=== PATIENT | female | born 1950 | race African-American/Black ===

== ENCOUNTER 2025-02-04 06:19 | Inpatient (IN) ==
--- NOTE | 2025-01-19 13:02 | PAT Medication Instructions ---
Medication Instructions Date of Service January 19, 2025 Home Medications Medication Instructions Recorded diclofenac sodium 3 % topical gel 1 applic topical BID PRN pain #100 //25 grams amlodipine 10 mg tablet 10 mg PO QAM duloxetine 60 mg capsule,delayed release 60 mg PO HS armodafinil 250 mg tablet 250 mg PO QAM ascorbic acid (vitamin C) 1,000 mg tablet (Vitamin C) 1,000 mg PO DAILY aspirin 81 mg tablet,delayed release 81 mg PO QPM cholecalciferol (vitamin D3) 125 mcg (5,000 unit) tablet (Vitamin D3) 125 mcg PO QAM coenzyme Q10 100 mg capsule (CoQ-10) 100 mg PO DAILY cyanocobalamin (vitamin B-12) 2,500 mcg sublingual tablet (Vitamin B-12) 2,500 mcg sublingual DAILY losartan 50 mg tablet 100 mg PO QAM magnesium oxide 400 mg PO HS mirabegron 50 mg tablet,extended release 24 hr 50 mg PO QAM wrvkueef-xki-oucwz ac 400 mcg-calcium carb 500 mg-vit K1 20 mcg tablet (Women's 50 Plus Multivitamin) 1 tab PO QAM trospium 20 mg tablet 20 mg PO BID diclofenac sodium 3 % topical gel 1 applic topical BID PRN pain atorvastatin 40 mg tablet 40 mg PO QAM hydralazine 25 mg tablet 25 mg PO BID oxycodone-acetaminophen 5 mg-325 mg tablet 1 tab PO Q8H PRN Pain ASK your prescriber and surgeon aspirin 81 mg tablet,delayed release 81 mg PO QPM armodafinil/Nuvigil 250 mg tablet 250 mg PO QAM (Anesthesia requests Armodafinil/Nuvigil be stopped 5 days prior to surgery- please check if this is okay with your prescriber) STOP taking 2 weeks before surgery (or as soon as possible if surgery is within 2 weeks) coenzyme Q10 100 mg capsule (CoQ-10) 100 mg PO DAILY STOP taking 24 hours before surgery diclofenac sodium 3 % topical gel 1 applic topical BID PRN pain DO NOT take the morning of surgery ascorbic acid (vitamin C) 1,000 mg tablet (Vitamin C) 1,000 mg PO DAILY cholecalciferol (vitamin D3) 125 mcg (5,000 unit) tablet (Vitamin D3) 125 mcg PO QAM cyanocobalamin (vitamin B-12) 2,500 mcg sublingual tablet (Vitamin B-12) 2,500 mcg sublingual DAILY losartan 50 mg tablet 100 mg PO QAM mirabegron 50 mg tablet,extended release 24 hr 50 mg PO QAM Women's 50 Plus Multivitamin 1 tab PO QAM trospium 20 mg tablet 20 mg PO BID Take morning of surgery With a small sip of water, OTHERWISE NOTHING TO EAT OR DRINK AFTER MIDNIGHT: amlodipine 10 mg tablet 10 mg PO QAM atorvastatin 40 mg tablet 40 mg PO QAM hydralazine 25 mg tablet 25 mg PO BID oxycodone-acetaminophen 5 mg-325 mg tablet 1 tab PO Q8H PRN Pain (if needed) Take evening before surgery duloxetine 60 mg capsule,delayed release 60 mg PO HS magnesium oxide 400 mg PO HS trospium 20 mg tablet 20 mg PO BID hydralazine 25 mg tablet 25 mg PO BID oxycodone-acetaminophen 5 mg-325 mg tablet 1 tab PO Q8H PRN Pain (if needed) Other Notes If you have any questions please call us at [phone] or [phone] or [phone] or [phone]
--- NOTE | 2025-01-19 13:14 | Communication Note ---
Patient is scheduled for C2-C3 Laminectomy and Fusion, Spinal Cord Monitoring on 02/04/[address] Steinberg. Hx of narcolepsy listed. Patient taking armodafinil/Nuvigil 250 mg tablet QAM. Reviewed by Dr. Salinas. He indicates recommendation from anesthesia perspective to hold armodafinil/Nuvigil 5 days prior to surgery if okay from prescriber perspective. Preop medication instructions completed which will be given/reviewed with patient at upcoming PAT visit.
--- NOTE | 2025-01-27 09:59 | Anesthesiology Consultation ---
Date of Service January 27, 2025 Assessment & Plan (1) Encounter for pre-operative examination: - awaiting medical clearance, S PCP, optimization form to be sent to PCP with PAT testing. - check BSG am DOS. - Case discussed in detail with Dr. Villegas who advised patient have PCP isaiah hamilton prior to surgery given 11/16- [facility] hospitalization. Patient made aware, denied questions or concerns. Surgeon's office made aware. - difficult intubation: multiple cervical spine surgeries, limited cervical spine ROM. Chart Review Chart Review: Pending: Refer to Additional Notes / Consult section and Patient seen in Pre Admission Testing Teaching & Discussion Pre-Anesthesia Teaching/Discussion Notes: Instructed NPO after midnight before surgery, except medications with 15 cc of water. Medication instructions provided according to the PAT guidelines. History Surgery Operation Date: 02/04/25 08:50 Proposed Procedures p C2-C3 Laminectomy and Fusion, Spinal Cord Monitoring - Sharath Steinberg MD Height/Weight Height: 5 ft 2.75 in Weight: 107.7 kg Allergies Allergy/AdvReac Type Severity Reaction Status Date / Time Penicillins AdvReac Intermediate Nausea/vomiting Verified 01/27/25 11:14 (per Bob) Medications Home Medications Medication Instructions Recorded Confirmed Last Taken amlodipine 10 mg tablet 10 mg PO QAM 08/17/20 01/18/25 11/15/24 duloxetine 60 mg capsule,delayed 60 mg PO HS 08/17/20 01/18/25 11/14/24 release armodafinil 250 mg tablet 250 mg PO QAM 11/16/24 01/18/25 11/15/24 ascorbic acid (vitamin C) 1,000 mg 1,000 mg PO DAILY 11/16/24 01/18/25 11/15/24 tablet (Vitamin C) aspirin 81 mg tablet,delayed 81 mg PO QPM 11/16/24 01/18/25 11/15/24 release cholecalciferol (vitamin D3) 125 125 mcg PO QAM 11/16/24 01/18/25 11/15/24 mcg (5,000 unit) tablet (Vitamin D3) coenzyme Q10 100 mg capsule 100 mg PO DAILY 11/16/24 01/18/25 11/15/24 (CoQ-10) cyanocobalamin (vitamin B-12) 2,500 mcg sublingual DAILY 11/16/24 01/18/25 11/15/24 2,500 mcg sublingual tablet (Vitamin B-12) losartan 50 mg tablet 100 mg PO QAM 11/16/24 01/18/25 11/15/24 magnesium oxide 400 mg PO HS 11/16/24 01/18/25 11/15/24 mirabegron 50 mg tablet,extended 50 mg PO QAM 11/16/24 01/18/25 11/15/24 release 24 hr wyfklaep-twa-ettbt ac 400 1 tab PO QAM 11/16/24 01/18/25 11/15/24 mcg-calcium carb 500 mg-vit K1 20 mcg tablet (Women's 50 Plus Multivitamin) trospium 20 mg tablet 20 mg PO BID 11/16/24 01/18/25 11/15/24 08:00 diclofenac sodium 3 % topical gel 1 applic topical BID PRN pain #100 01/06/25 01/18/25 Unknown grams atorvastatin 40 mg tablet 40 mg PO QAM 01/18/25 01/18/25 Unknown hydralazine 25 mg tablet 25 mg PO BID 01/18/25 01/18/25 Unknown oxycodone-acetaminophen 5 mg-325 1 tab PO Q8H PRN Pain 01/18/25 01/18/25 Unknown mg tablet Additional Notes: Dr. La advised patient only hold armodafinil the morning of surgery. This was corrected on provided medication instructions. Past Medical History Medical History (Updated 01/27/25 @ 11:56 by Elke Ulloa PA-C) Arthritis Depression History of blood transfusion (~1969) childbirth History of stroke (~1980) 1980 Hx-TIA (transient ischemic attack) (~10/2024) Hyperlipidemia Hypertension controlled, stable per pt Narcolepsy Prediabetes Sleep apnea CPAP-compliant Spinal stenosis Urinary incontinence Patient denies h/o seizures, heart attack, heart failure, or blood clots/DVTs. Exercise / Class Metabolic Activity III < 4 Walking/Shop/Light housework (ambulates with walker, denies chest discomfort or shortness of breath with usual activities) Past Family History Family History Other No family history of adverse response to anesthesia Past Surgical History Surgical History History of bilateral tubal ligation History of cholecystectomy History of colonoscopy History of difficult intubation Per patient Noted with 2009 cervical fusion ([facility]) No available previous [place] anesthesia records per chart review History of hysterectomy History of tonsillectomy History of tooth extraction S/P cervical spinal fusion (2009) 2 levels Past Anesthesia History Difficult Airway and No Family Hx of Anesthesia Complications History of PONV No Hx of PONV and No Hx of Motion Sickness Social History Smoking Status: Former smoker Do You Dip or Chew Tobacco: No Smoking End Date: 1971 Hx Alcohol Use: Yes alcohol intake frequency: holidays/special occasions only Hx Substance Use: Yes substance use type: marijuana Last Used Substance Other:: last used>a couple weeks ago (advised) Review of Systems Patient denies chest pain, shortness of breath, dyspnea on exertion, fever, chills, cough, wheezing, or palpitations. Physical Exam Vital Signs Vitals BP 151/84 P 67 TEMP 97.7 SP02 97% on RA RESP 18 Physical Patient resting comfortably in chair in no acute distress, alert and oriented, responding appropriately throughout visit Severely limited cervical extension range of motion without pain TMD 3.5 finger breadths Mallampati Score 3 Dentition: upper partial, denies chipped or loose teeth, caps/crowns, implants or bridges Lungs: normal respiratory effort. Good air movement, clear throughout to auscultation, no adventitious breath sounds Cardiac: regular rate and rhythm, no murmurs noted Carotid arteries: negative bruit bilat Lab Results Anesthesia Preop Results Results Anesthesia Widget: WBC 7.72 K/ul (4.8-10.8) 01/27/25 Hgb 12.6 g/dl (12.0-16.0) 01/27/25 Hct 40.2 % (37.0-47.0) 01/27/25 Plt 283 K/uL (130-400) 01/27/25 Na 140 mmol/L (136-145) 01/27/25 K 3.9 mmol/L (3.5-5.1) 01/27/25 Cl 104 mmol/L (98-107) 01/27/25 CO2 31 mmol/L (21-32) 01/27/25 BUN 21 mg/dl (6-23) 01/27/25 Creat 0.99 mg/dl (0.6-1.2) 01/27/25 Glucose Level 140 mg/dl (70-99(Fasting)) H 01/27/25 PT 10.5 Seconds (9.0-12.0) 01/27/25 PTT 29 Seconds (21-31) 01/27/25 INR 1.0 (0.9-1.1) 01/27/25 HA1c 5.9 % (4.5-5.6) H 01/27/25 Blood Type O Positive 01/27/25 Antibody Screen NEGATIVE 01/27/25 Testing Electrocardiogram Date: 11/16/24 Normal sinus rhythm with sinus arrhythmia, rate 70 bpm Moderate voltage criteria for LVH, may be normal variant Chest X-Ray Date: 11/16/24 *1 view* 1. No acute pulmonary abnormalities are identified. 2. Cardiomegaly. Stable. Echocardiogram Date: 11/16/24 EF 55-6% Normal LV wall motion Mild cLVH Mild mitral annular calcification, significant mitral regurgitation is absent Grade I diastolic dysfunction Cervical Spine Date: 11/17/24 MRI 1. The study is very motion degraded. 2. Degenerative and postoperative changes of the cervical spine as above. 3. Right paracentral apparent osteophyte at C4-C5 is noted adjacent to an area of myelomalacia and narrowing/scarring of the cervical spinal cord. 4. Severe central canal stenosis at C2-C3. 5. No abnormal enhancement. CT 1. No evidence of acute fracture. 2. Post spinal fixation status from C3-C5 levels with intervertebral fusion. Satisfactory alignment of the metallic hardware is identified. No evidence of loosening or signs of infection. 3. Advanced cervical spondylodegenerative changes as described above. 4. Diffuse osteopenic texture. Other Testing Head and neck CTA 11/17/24 No significant arterial narrowing or occlusion seen at the neck. 1. Moderate to severe high-grade stenosis within the supraclinoid segments of the internal carotid arteries. 2. Moderate multifocal stenoses of the patent middle cerebral arteries. 3. No arterial occlusion identified. Head MRA 11/16/24 Unremarkable MRA of the head. Carotid doppler 11/16/24 No evidence of carotid artery stenosis. Brain MRI 11/16/24 1. No acute intracranial abnormality. No acute or subacute infarct. 2. Involutional changes with advanced chronic microvascular ischemic disease. 3. Punctate foci of blooming artifact artifact within the cerebral hemispheres bilaterally suggestive of chronic hemosiderin. Cerebral amyloidosis is a differential consideration. Head CT 11/16/24 1. No acute intracranial traumatic injury detected 2. Chronic microvascular ischemic changes and senile cortical atrophy. 3. MRI is recommended if acute ischemic insult is clinically warranted.
[2025-02-04] MEDS: LR 15ML/HR IV SCH (06:50)
[2025-02-04] MEDS: LR 60ML/HR IV SCH (06:50)
[2025-02-04] MEDS: ACETAMINOPHEN 500 MG TAB PO SCH (06:50)
[2025-02-04] MEDS ORDERED: PROPOFOL IV EMULSION 10 MG/ML 100 ML VIAL IV ONE ×4 (07:11→11:29)
[2025-02-04] MEDS ORDERED: LIDOCAINE 2% 2 ML VIAL/AMP(20MG/ML) INFIL ONE ×2 (07:11→15:34)
[2025-02-04] MEDS ORDERED: PROPOFOL IV EMULSION 10 MG/ML 20 ML VIAL IV ONE ×4 (07:14→15:34)
[2025-02-04] MEDS ORDERED: GLYCOPYRROLATE 0.2 MG/ML VIAL ONE (07:14)
[2025-02-04] MEDS ORDERED: DEXAMETHASONE SOD INJ 4 MG/ML VIAL ONE ×2 (07:14→15:34)
[2025-02-04] MEDS ORDERED: ONDANSETRON INJ 2 MG/ML 2 ML VIAL ONE ×3 (07:14→15:34)
[2025-02-04] MEDS ORDERED: SUCCINYLCHOLINE CHLORIDE 20 MG/ML 10 ML VIAL IV ONE (07:18)
--- NOTE | 2025-02-04 07:20 | History & Physical Bridge Note ---
Date of Service February 04, 2025 History & Physical Bridge Note I have examined the patient, reviewed the History & Physical and in the interval since the performance of the History & Physical I have noted the following changes of clinical significance: no changes noted Plan for C2-3 fusion and decompression
[2025-02-04] MEDS ORDERED: PHENYLEPHRINE HCL 10 MG/ML VIAL ONE ×3 (07:21→15:53)
[2025-02-04] MEDS ORDERED: ePHEDrine sulfate 50 MG/5 ML SYR ONE (07:29)
[2025-02-04] MEDS ORDERED: ATROPINE SULFATE 0.1 MG/ML 10ML SYR IV PRN ×2 (08:13→17:52)
[2025-02-04] MEDS ORDERED: PROMETHAZINE HCL 6.25 MG in SODIUM CHLORIDE 0.9% 50 ML IV PRN (08:13)
[2025-02-04] MEDS ORDERED: HYDROmorphone INJ 1 MG/ML SYRINGE IV PRN (08:13)
[2025-02-04] MEDS ORDERED: ONDANSETRON INJ 2 MG/ML 2 ML VIAL IV PRN ×3 (08:13→19:15)
[2025-02-04] MEDS ORDERED: NALOXONE HCL 0.4 MG/1 ML VIAL/CARP IV PRN ×2 (08:13→19:15)
[2025-02-04] MEDS ORDERED: FLUMAZENIL 0.1 MG/1 ML 10 ML VIAL IV PRN (08:13)
[2025-02-04] MEDS: BACITRACIN OINT 14 GM TUBE ONE (09:52)
[2025-02-04] MEDS: VANCOMYCIN HCL 1000MG/20ML VIAL ONE ×2 (09:53→17:11)
[2025-02-04] MEDS ORDERED: ceFAZolin 330 MG/ML 1 GM VIAL ONE ×3 (12:15→16:35)
--- NOTE | 2025-02-04 12:20 | Fluoroscopy Report ---
FL spine 1V any level CLINICAL HISTORY: C2-C3 LAMI/FUSION COMPARISON STUDY: None FLUOROSCOPY TIME: 17 seconds FLUOROSCOPY IMAGES: 2 EXPOSURE DOSE: 5 mGy FINDINGS: Fluoroscopy was provided for cervical spine surgery. IMPRESSION: Intraoperative fluoroscopy. ACT 112: Negative or not required by law. Electronically signed by: Santiago Tovar M.D. 02/04/2025 12:19 PM
[2025-02-04] MEDS: ceFAZolin 330 MG/ML 1 GM VIAL ONE (12:42)
[2025-02-04] MEDS: FLOSEAL HEMOSTATIC MATRIX 10ML TOP ONE (12:42)
--- NOTE | 2025-02-04 13:48 | Post Operative Brief Note ---
PG Immediate Post Op with CF Date of Surgery February 04, 2025 Pre & Post Diagnosis Operation Date: 02/04/25 07:30 Pre-Op Diagnosis: 1. Cervical Myelopathy 2. Cervical Stenosis of Spinal Canal 3. 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 Cervical Myelopathy 2. Cervical Stenosis of Spinal Canal 3. 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 Procedure I identified the patient and participated in the time-out.: Yes Procedure Operation Date: 02/04/25 07:30 Actual Procedures p C2-C3 Laminectomy and Fusion with Navigation and Spinal Cord Monitoring(Not Applicable) - Sharath Steinberg MD Surgeon Sharath Steinberg MD Security Controls Assessor Shabbir Wharton Estimated Blood Loss 150 Findings Consistent with Post-Op Diagnosis Specimens Specimen Description: No specimen per surgeon Drains Lonnie Drain (15f ) and Conteh Catheter (Inserted after induction by Mk Davis RN) Anesthesia Type General Complications none Disposition Disposition: Recovery Room
--- NOTE | 2025-02-04 15:16 | Fluoroscopy Report ---
FL cervical 2-3V CLINICAL HISTORY: FUSION/LAMINECTOMY COMPARISON STUDY: MRI of the cervical spine November 17, 2024. Number of fluoroscopic images: 2. FINDINGS: Exact localization is difficult given suboptimal penetration. Fluoroscopy was provided duri ng a multilevel cervical laminectomy and fusion. A surgical drain is in place. There are skin carol . Previous anterior discectomy and fusion hardware is noted. IMPRESSION: Fluoroscopy provided during multilevel cervical laminectomy and fusion. ACT 112: Negative or not required by law. Electronically signed by: Stepan Bose M.D. 02/04/2025 3:13 PM
--- NOTE | 2025-02-04 15:30 | Operative Report ---
Post Operative Report Pre & Post Diagnosis Pre-Op diagnosis: Cervical myelopathy Cervical stenosis Prior cervical fusion Pre-Op diagnosis: Cervical myelopathy Cervical stenosis Prior cervical fusion I identified the patient and participated in the time-out.: Yes Procedure Operation Date: 02/04/25 13:05 Posterior cervical fusion C2-3 Cervical laminectomy C2 Posterior cervical instrumentation C3-4 Allograft for spinal fusion Use of stereotactic navigation for spinal instrumentation Instrumentation: Medtronic Surgeon Sharath Steinberg MD Shovel Loader Operator Shabbir Wharton Estimated Blood Loss 150 Findings Consistent with Post-Op Diagnosis Specimens None Drains Lonnie Anesthesia Type General Complications none Disposition Disposition: Recovery Room Description of Procedure Patient was brought to the operating room after her neck was marked in the preoperative area. General anesthesia was induced, baseline SSEPs and motor evoked potentials were obtained by neuromonitoring. Cassidy head positioner was attached. Patient was then placed in a cervical collar. She was then flipp ed to the prone position gently and [place] head positioner attached to the frame. Neuromonitoring reattached the lead and there was no change in neuromonitoring signals with positioning. Verbal timeout was performed after the patient was prepped and draped in the usual sterile fashion and a skin incision was approximated by fluoroscopy. All were in agreement with the timeout and would like to proceed. She had received preoperative antibiotics. SCDs were used for DVT prophylaxis and a Conteh catheter was in place. Skin was incised with a 10 blade scalpel. Subperiosteal dissection was carried out to expose the posterior C2-C3 and C4 lamina. The facet joints were dissected out and there was prior fusion from C3 below. Towel clip was placed on the C2 spinous process and level was confirmed with x-ray. I then used the Via [employer]ics micro cornerstone elevator to enter the left C2-3 facet joint. 3 mm rasp was used and a 2 mm allograft facet joint spacer was placed with in the C2-3 facet joint on the left to both provide indirect decompression of the foramen as well as encourage posterior fusion within the facet joint. There was considerable osteophyte covering the right C2-3 facet joint and minimal bone was already identified for purchase of C2 pars screws so decision was made to just bur the facet joint and packet with allograft material DBM. Spinous process clamp was attached to the C3 to lamina. The [employer] O-arm was brought in and intraoperative CT scan was performed. The images were uploaded to the interim Stealth viewer for CT guided navigation of the instrumentation. Using a navigated bur I created aerospace mechanic hole in the C2 pars bilaterally. A navigated drill was then used to further cannulate the tract, given the location of the vertebral artery I was able to cannulate a tract of 18 mm on the left and 16 mm on the right. Navigated tap was then used. 3.5 mm posterior cervical screws were then placed within the pars at C2 bilaterally. I then used the na vigated bur to cannulate lateral mass screw tracks into the C3 and C4 lateral masses bilaterally. Again navigated drill and tap were used. 14 mm lateral mass screws were placed bilaterally at C3 and C4 for additional purchase. Wound was thoroughly irrigated. The just.metronic O-arm was then brought back in and a second intraoperative CT scan was performed. Images were uploaded to the in room viewer and I was able to identify good positioning of all cervical screws on the repeat CT scan. I then began with the decompression, again using a navigated bur with 4 mm match head tip I created a trough on each side of the C2 lamina to dissect down to the ligamentum flavum. The central portion of the C2 lamina was thinned with a high-speed bur I did leave the superior attachment of the C2 spinous process and C2 lamina to preserve the ligamentous attachment of C1 and C2. Remaining C2 lamina bone over the central canal was removed with Kerrison rongeur. The ligamentum flavum was severely hypertrophied at the C2-3 level and this was elevated off of the dura with a micro nerve hook and removed with Kerrison rongeur. There was no change in neuromonitoring and SSEPs or motor evoked potentials during the decompression. At this point I further decorticated the lateral masses posteriorly and packed more demineralized bone matrix as well as Medtronic master graft bone graft substitute. Rods were bent and placed within the tulip head of the screws from C2-C4. Final tightening was used to lock the screws in place. Wound was thoroughly irrigated, a Lonnie drain was placed exiting out through the skin subfascially. Wound was closed in layers with strata fix suture in the fascia, interrupted Vicryl's in the subcutaneous layer and carol in the skin. Sterile dressing was applied and drain attached to suction. She was transferred back to the hospital bed and the [place] head positioner was removed and she was taken to PACU in stable condition. Postoperatively I was called to the PACU, concern is the drain had no output in over 1 hour and when the patient awakened she did states she had some numbness in her arms and legs, decision made to bring her back to the operating room for exchange of the drain. This was discussed with her daughter. I attest to the content of the Intraoperative Record and any orders documented therein. Any exceptions are noted below.
--- NOTE | 2025-02-04 15:33 | Orthopedic Progress Note ---
Date of Service February 04, 2025 Assessment & Plan (1) S/P cervical spinal fusion: Plan Emergent return to OR for wound exploration and drain change Subjective Called to PACU, patient is somnolent moving all extremities. Drain is dry with no output since OR, reported some numbness to PACU staff in hands and legs. Concern that drain is not functioning and may be developing hematoma. Review of Systems All systems reviewed & are unremarkable except as noted in HPI & below. Physical Exam somnolent but responds to commands, moves all extremities no drain output Results & Data Results & Data Laboratory Results . Diagnostic Findings . PG Care Time/CCT Total # of Minutes Spent Total Time Spent with Patient: Total time spent is greater than 50% in coordination of care (as documented) at patient's floor/unit and/or counseling patient: Coding Level of Care Code 99187 Post Operative Follow-Up Diagnoses S/P cervical spinal fusion Z98.1
[2025-02-04] MEDS ORDERED: ROCURONIUM BROMIDE 10 MG/ML 5 ML VIAL IV ONE (15:34)
--- NOTE | 2025-02-04 15:48 | Communication Note ---
Date of Service: February 04, 2025 No change in H&P. Pt in c-collar post operatively. Alert and answering questions. plan to take back to OR for exchange of drainage catheter. Brad TORRES Anesthesiology
[2025-02-04] MEDS ORDERED: SODIUM CHLORIDE 0.9% PF INJ 10 ML VIAL ONE (15:53)
[2025-02-04] MEDS ORDERED: SUGAMMADEX SODIUM 200 MG/2 ML VIAL IV ONE (16:56)
--- NOTE | 2025-02-04 17:38 | Operative Report ---
PG Post Operative Report Pre & Post Diagnosis Operation Date: 02/04/25 13:05 Pre-Op Diagnosis: Epidural Hematoma Post-Op Diagnosis: Epidural Hematoma I identified the patient and participated in the time-out.: Yes Procedure Operation Date: 02/04/25 13:05 Actual Procedures p Evacuation Surgical Hematoma(Right) - Sharath Steinberg MD Surgeon Sharath Steinberg MD Newspaper Managing Editor Shabbir Wharton Estimated Blood Loss 30 Findings Consistent with Post-Op Diagnosis Liquid blood collection in surgical site Specimens None Drains 19 Swedish Lonnie drain, 15 Swedish Lonnie drain subfascial Anesthesia Type General Complications none Disposition Disposition: Recovery Room Indications Patient was status post C2 decompression and posterior fusion, in PACU she reported advancing numbness and tingling in upper and lower extremities. On examination her drain was not functioning properly. High suspicion for developing epidural hematoma, immediate return to the operating room. Description of Procedure The patient was brought to the operating room where general anesthesia was induced. She was placed in the prone position on the Keegan spine table. All bony prominences were padded. Previous drain that was not functioning was removed and once it was pulled blood began draining from the site. Bam were removed. She was prepped and draped in the usual sterile fashion. Verbal timeout performed. Scalpel was used to recreate the incision and cut the sutures placed earlier today. These were removed with hemostat. Once I opened the fascia there was a large amount of liquid blood as well as serous fluid buildup at the surgical site. This was evacuated. Wound was irrigated. I explored the wound there was no active bleeding. The dura was intact. At this point unsure of why the prior drain had stopped functioning. I then placed a 19 Swedish drain subfascially exiting out the right side of the incision. On the left side of the incision I placed a 15 Swedish subfascial Lonnie drain. The fascia was closed tightly. Drains were attached to accordion suction and found to have good flow through the tubing towards the canister. The drains were sutured in place. The subcutaneous layer was then closed with Vicryl suture. Bam placed in the skin. Sterile dressing applied. Patient was placed back on her cervical collar and transferred back to her hospital bed. She will be sent to the PCU postoperatively for monitoring however at this point she has 2 large drains subfascially which are both functioning. No other evidence of complication when the wound was explored. I attest to the content of the Intraoperative Record and any orders documented therein. Any exceptions are noted below.
--- NOTE | 2025-02-04 18:10 | Anesthesiology Progress Note ---
Date of Service February 04, 2025 Anesthesia Post Procedure Vital Signs Vital Signs: Temp Pulse Resp BP Pulse Ox O2 Del Method O2 Flow Rate 02/04/25 17:55 89 16 151/111 H 100 Oxymask 3 02/04/25 17:45 36.3 C L 89 18 182/109 H 100 Oxymask 6 02/04/25 16:00 91 H 16 169/102 H 95 Nasal Cannula 2 02/04/25 15:50 90 13 149/88 H 94 Nasal Cannula 2 02/04/25 15:40 91 H 17 168/101 H 96 Nasal Cannula 2 02/04/25 15:30 91 H 19 164/98 H 96 Nasal Cannula 2 02/04/25 15:20 90 18 164/96 H 97 Nasal Cannula 2 02/04/25 15:10 89 12 163/97 H 97 Nasal Cannula 2 02/04/25 15:00 89 12 155/96 H 97 Nasal Cannula 2 02/04/25 14:50 36.4 C L 91 H 18 149/89 H 97 Nasal Cannula 2 02/04/25 14:40 91 H 18 150/92 H 97 Nasal Cannula 2 02/04/25 14:30 90 16 141/89 H 97 Nasal Cannula 2 02/04/25 14:20 90 21 139/111 H 97 Nasal Cannula 2 02/04/25 14:10 91 H 12 141/87 H 98 Nasal Cannula 4 02/04/25 14:00 91 H 24 130/89 98 Nasal Cannula 4 02/04/25 13:49 36.5 C 88 15 137/92 98 Oxymask 4 02/04/25 06:41 36.8 C 75 20 155/84 H 97 Room Air Pain Intensity Posterior Neck: Pain Intensity: 5 Transfer of Care Handoff Completed per policy Notes Mental Status: alert / awake / arousable Patient Amnestic to Procedure: Yes Nausea / Vomiting: adequately controlled Pain: adequately controlled Airway Patency, RR, SpO2: stable & adequate BP & HR: stable & adequate Hydration State: stable & adequate Anesthetic Complications: no major complications apparent Notes: reintubation for drain replacement with some difficulty. swollen soft tissues with bleeding. first attempt unsuccessful with glidescope. able to ventilate between attempts without difficulty. intubated with fiberoptic scope with glidescope guidance.
[2025-02-04] MEDS: LABETALOL HCL IV 5 MG/ML 20ML IV PRN (18:40)
[2025-02-04] MEDS ORDERED: DO NOT ADMINISTER FLU VACCINE PRN (19:15)
[2025-02-04] MEDS ORDERED: RACEPINEPHRINE 2.25% NEBU SOLN 0.5 ML VIAL INH PRN (19:15)
[2025-02-04] MEDS ORDERED: PROMETHAZINE 12.5 MG/50.5 ML BAG IV PRN (19:15)
[2025-02-04] MEDS ORDERED: SOD PHOSPHATE/SOD BIPHOSPHATE ENEMA 132 ML BTL PR PRN (19:15)
[2025-02-04] MEDS ORDERED: MAGNESIUM HYDROXIDE SUSP 30 ML UDC PO PRN (19:15)
[2025-02-04] MEDS ORDERED: diphenhydrAMINE Capsule 25 MG CAP PO PRN (19:15)
[2025-02-04] MEDS ORDERED: dexAMETHasone 8 MG in SYRINGE 0 ML IV PRN (19:15)
[2025-02-04] MEDS ORDERED: DO NOT ADMINISTER PNEUMOCOCCAL VACCINE PRN (19:15)
[2025-02-04] MEDS ORDERED: ALUMINUM/MAGNESIUM SUSP 30 ML UDC PO PRN (19:15)
[2025-02-04] MEDS ORDERED: ONDANSETRON 4 MG OD TAB PO PRN (19:15)
[2025-02-04] MEDS ORDERED: LORazepam 0.5 MG TAB PO PRN (19:15)
[2025-02-04] MEDS: LACTATED RINGER'S 1,000 ML IV SCH (19:43)
[2025-02-04] MEDS: ACETAMINOPHEN 1,000 MG/100 ML VIAL IV PRN (19:43)
[2025-02-04] MEDS: MAGNESIUM OXIDE 400 MG TAB PO SCH (20:22)
[2025-02-04] MEDS: DOCUSATE SODIUM/SENNA 50/8.6MG TAB PO SCH (20:54)
[2025-02-04 21:11] LABS: Hematocrit (blood only) 43.2 % (37.0-47.0); Hemoglobin 13.7 g/dl (12.0-16.0); Immature Granulocytes # (auto) 0.12 K/uL (0.01-0.20); Immature Granulocytes % (auto) 0.8 %; Mean Corpuscular Hemoglobin 25.2 pg (25.0-34.0); Mean Corpuscular Volume 79.4 fL (80.0-100.0); Platelet Count 269 K/uL (130-400); RDW Standard Deviation 41.3 fL (36.4-46.3); Red Blood Count 5.44 M/uL (4.20-5.40); White Blood Count 14.14 K/ul (4.8-10.8)
[2025-02-04] MEDS: HYDROmorphone INJ 0.5 MG/0.5 ML SYR IV PRN (21:12)
[2025-02-04 21:28] LABS: Anion Gap 11.0 (3-11); Blood Urea Nitrogen 17.0 mg/dl (6-23); Calcium 9.0 mg/dl (8.6-10.3); Carbon Dioxide 25.0 mmol/L (21-32); Chloride 102.0 mmol/L (98-107); Creatinine Clr Calc Pharmacy 48.9 ml/min; Glucose 211.0 mg/dl (70-99(Fasting)); Magnesium 1.7 mg/dl (1.7-2.4); Potassium 4.2 mmol/L (3.5-5.1); Sodium 138.0 mmol/L (136-145)
[2025-02-04] MEDS ORDERED: DEXTROSE 50% 50 ML SYRINGE IV PRN (21:53)
[2025-02-04] MEDS ORDERED: GLUCOSE 40% GEL 15 GM TUBE PO PRN (21:53)
[2025-02-04] MEDS ORDERED: GLUCOSE 10 TAB/TUBE PO PRN (21:53)
[2025-02-04] MEDS ORDERED: CARBOHYDRATES FOR HYPOGLYCEMIA PO PRN (21:53)
[2025-02-04] MEDS ORDERED: GLUCAGON FOR INJ 1 MG VIAL SQ PRN (21:53)
[2025-02-04] MEDS: ACETAMINOPHEN 500 MG TAB PO PRN (22:30)
[2025-02-04] MEDS: INSULIN ASPART PER UNIT CHARGE SC SCH (22:34)
--- NOTE | 2025-02-04 22:41 | Hospitalist Consultation ---
Date of Consultation February 04, 2025 Assessment & Plan (1) Cervical myelopathy: Final Assessment and Recommendations as follows : Cervical myelopathy status post surgery complicated by epidural hematoma status post decompression Hypertensive urgency History recurrent TIAs hyperlipidemia, on statin Rx PVD, aortic ectasia as per records Maxwell's palsy MAGALY/narcolepsy (CPAP noncompliance) hx difficult intubation DM2 on oral medications, well-controlled as of recent hemoglobin A1c of 5.9 last month chronic back pain status post surgery past tobacco abuse Analgesia Titrate home BP meds Hold parameters for narcotics and neuropsychotropic medications for sedation/confusion Resume home aspirin for secondary stroke prevention once bleeding risk is deemed to be minimal and negligible following Orthopedics postop eval ISS BG goal 110-140, carb count coverage DVT prophylaxis. SCDs as per postop orders Thank you very much for this consultation. Dr. Valencia will follow patient's progress. Text document was generated using [employer] voice recognition software. It may contain grammatical or spelling errors. Kindly contact undersigned for clarification of any documentation item in question. History of Present Illness Reason for Consultation: Medical management Requesting Physician: Dr. Steinberg Attending Physician: Sharath Steinberg MD History of Present Illness PCP : Dr. Howard History obtained from patient and records. Limited history from patient secondary to lethargy. Medical history significant for hypertension, hyperlipidemia, PVD, recurrent TIAs, Maxwell's palsy, MAGALY/narcolepsy (CPAP noncompliance), difficult intubation, DM2 on oral medications, chronic back pain status post surgery, mood disorder, past tobacco abuse. Last confinement October 2024 for strokelike symptoms presenting as RLE weakness. Patient also evaluated by Orthopedics spine during confinement for cervical and lumbar spine stenosis. Patient subsequently discharged to rehab prior to transitioning home. Patient underwent elective laminectomy for cervical myelopathy/stenosis today. Postprocedure, patient reported numbness in the hands and legs. Drain not functioning as per surgeon note. Patient underwent emergent OR for suspected epidural hematoma. Subsequent evacuation of surgical hematoma done. Patient transferred to monitored unit postop. Patient currently comfortable except for tolerable neck discomfort. Denies chest pain, SOB. 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 Allergies Allergy/AdvReac Type Severity Reaction Status Date / Time Penicillins AdvReac Intermediate Nausea/vomiting Verified 02/04/25 06:36 (per Bob) Home Medications Medication Instructions Recorded Confirmed Type amlodipine 10 mg tablet 10 mg PO QAM 08/17/20 02/04/25 History duloxetine 60 mg capsule,delayed 60 mg PO HS 08/17/20 02/04/25 History release armodafinil 250 mg tablet 250 mg PO QAM 11/16/24 02/04/25 History ascorbic acid (vitamin C) 1,000 mg 1,000 mg PO DAILY 11/16/24 02/04/25 History tablet (Vitamin C) aspirin 81 mg tablet,delayed 81 mg PO QPM 11/16/24 02/04/25 History release cholecalciferol (vitamin D3) 125 125 mcg PO QAM 11/16/24 02/04/25 History mcg (5,000 unit) tablet (Vitamin D3) coenzyme Q10 100 mg capsule 100 mg PO DAILY 11/16/24 02/04/25 History (CoQ-10) cyanocobalamin (vitamin B-12) 2,500 mcg sublingual DAILY 11/16/24 02/04/25 History 2,500 mcg sublingual tablet (Vitamin B-12) losartan 50 mg tablet 100 mg PO QAM 11/16/24 02/04/25 History magnesium oxide 400 mg PO HS 11/16/24 02/04/25 History mirabegron 50 mg tablet,extended 50 mg PO QAM 11/16/24 02/04/25 History release 24 hr vsghhwob-lua-hshym ac 400 1 tab PO QAM 11/16/24 02/04/25 History mcg-calcium carb 500 mg-vit K1 20 mcg tablet (Women's 50 Plus Multivitamin) trospium 20 mg tablet 20 mg PO BID 11/16/24 02/04/25 History diclofenac sodium 3 % topical gel 1 applic topical BID PRN pain #100 01/06/25 02/04/25 Rx grams atorvastatin 40 mg tablet 40 mg PO QAM 01/18/25 02/04/25 History hydralazine 25 mg tablet 25 mg PO BID 01/18/25 02/04/25 History oxycodone-acetaminophen 5 mg-325 1 tab PO Q8H PRN Pain 01/18/25 02/04/25 History mg tablet Patient History Medical History History of blood transfusion (~1969) childbirth Spinal stenosis Urinary incontinence Arthritis Prediabetes Depression History of stroke (~1980) 1980 Hx-TIA (transient ischemic attack) (~10/2024) Hypertension controlled, stable per pt Hyperlipidemia Narcolepsy Sleep apnea CPAP-compliant Surgical History (Updated 02/04/25 @ 15:32 by Sharath Steinberg MD) History of difficult intubation Per patient Noted with 2009 cervical fusion ([facility]) No available previous [place] anesthesia records per chart review History of tonsillectomy History of bilateral tubal ligation History of hysterectomy History of colonoscopy History of cholecystectomy History of tooth extraction Family History Other No family history of adverse response to anesthesia Social History Smoking Status: Former smoker Tobacco Type: Cigarettes Smoking End Date: 1971; Second Hand Exposure: No; Do You Dip or Chew Tobacco: No; Tobacco Cessation Education Requested by Patient: No Hx Alcohol Use: Yes Alcohol type: wine Hx Substance Use: No Preferred Language: Armenian Communication Ability: Effective 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: No Beliefs That Will Affect Care: None marital status: Single Current Living Situation: Family Current Living Situation Comment: daughter current occupational status: retired Other Information That Helps Us Care for You: No Feels Safe at Home: Yes Safety Concerns: Feels Safe At This Time Assistive Devices: Cane and Denture - Upper Review of Systems Review of Systems: Could not be really obtained secondary to lethargy Physical Exam Physical Exam: GENERAL: Lethargic, morbidly obese, no respiratory distress SKIN: Normal color, warm HEENT: [place] palpebral conjunctivae, chronic facial asymmetry, no ptosis, moist buccal mucosa NECK : Cervical immobilizer in place CHEST : CTA, no tenderness HEART : RRR, no obvious murmurs ABDOMEN: Some distention, nontender EXTREMITIES : Minimal LE swelling, no LE tenderness palpable pulses, no other conspicuous deformities noted NEUROLOGIC : Lethargic,, chronic facial asymmetry; gait and stance not assessed Results & Data Results & Data Vital Signs (Past 12 Hours) Vital Signs Temp Pulse Pulse Resp BP BP Pulse Ox 02/04/25 21:45 36.7 C 88 16 164/91 H 94 02/04/25 21:03 02/04/25 20:45 36.7 C 89 18 156/93 H 98 02/04/25 19:57 85 18 97 02/04/25 19:45 36.7 C 88 16 164/98 H 96 02/04/25 19:15 36.6 C 87 16 164/99 H 98 02/04/25 19:15 02/04/25 18:45 36.4 C L 80 14 166/98 H 96 02/04/25 18:40 88 174/106 H 02/04/25 18:35 88 20 190/103 H 99 02/04/25 18:25 90 16 186/108 H 100 02/04/25 18:15 88 16 166/99 H 100 02/04/25 18:05 88 18 167/93 H 99 02/04/25 17:55 89 16 151/111 H 100 02/04/25 17:45 36.3 C L 89 18 182/109 H 100 02/04/25 16:00 91 H 16 169/102 H 95 02/04/25 15:50 90 13 149/88 H 94 02/04/25 15:40 91 H 17 168/101 H 96 02/04/25 15:30 91 H 19 164/98 H 96 02/04/25 15:20 90 18 164/96 H 97 02/04/25 15:10 89 12 163/97 H 97 02/04/25 15:00 89 12 155/96 H 97 02/04/25 14:50 36.4 C L 91 H 18 149/89 H 97 02/04/25 14:40 91 H 18 150/92 H 97 02/04/25 14:30 90 16 141/89 H 97 02/04/25 14:20 90 21 139/111 H 97 02/04/25 14:10 91 H 12 141/87 H 98 02/04/25 14:00 91 H 24 130/89 98 02/04/25 13:49 36.5 C 88 15 137/92 98 Pulse Ox O2 Del Method O2 Del Method O2 Flow Rate 02/04/25 21:45 Nasal Cannula 2 02/04/25 21:03 Nasal Cannula 2 02/04/25 20:45 Nasal Cannula 2 02/04/25 19:57 Nasal Cannula 2 02/04/25 19:45 Nasal Cannula 2 02/04/25 19:15 Nasal Cannula 2 02/04/25 19:15 98 Room Air 02/04/25 18:45 Nasal Cannula 2 02/04/25 18:40 02/04/25 18:35 Nasal Cannula 2 02/04/25 18:25 Nasal Cannula 2 02/04/25 18:15 Nasal Cannula 2 02/04/25 18:05 Nasal Cannula 2 02/04/25 17:55 Nasal Cannula 3 02/04/25 17:45 Nasal Cannula 5 02/04/25 16:00 Nasal Cannula 2 02/04/25 15:50 Nasal Cannula 2 02/04/25 15:40 Nasal Cannula 2 02/04/25 15:30 Nasal Cannula 2 02/04/25 15:20 Nasal Cannula 2 02/04/25 15:10 Nasal Cannula 2 02/04/25 15:00 Nasal Cannula 2 02/04/25 14:50 Nasal Cannula 2 02/04/25 14:40 Nasal Cannula 2 02/04/25 14:30 Nasal Cannula 2 02/04/25 14:20 Nasal Cannula 2 02/04/25 14:10 Nasal Cannula 4 02/04/25 14:00 Nasal Cannula 4 02/04/25 13:49 Oxymask 4 Laboratory Results Laboratory Results WBC 14.14 K/ul (4.8-10.8) H 02/04/25 20:55 RBC 5.44 M/uL (4.20-5.40) H 02/04/25 20:55 Hgb 13.7 g/dl (12.0-16.0) 02/04/25 20:55 Hct 43.2 % (37.0-47.0) 02/04/25 20:55 MCV 79.4 fL (80.0-100.0) L 02/04/25 20:55 MCH 25.2 pg (25.0-34.0) 02/04/25 20:55 MCHC 31.7 g/dL (32.0-36.0) L 02/04/25 20:55 RDW Std Deviation 41.3 fL (36.4-46.3) 02/04/25 20:55 RDW Coeff of Radha 14.5 % (11.5-14.5) 02/04/25 20:55 Plt Count 269 K/uL (130-400) 02/04/25 20:55 MPV 10.7 fL (9.4-12.4) 02/04/25 20:55 Immature Gran % (Auto) 0.8 % 02/04/25 20:55 Neut % (Auto) 86.2 % 02/04/25 20:55 Lymph % (Auto) 9.5 % 02/04/25 20:55 [place] % (Auto) 3.4 % 02/04/25 20:55 Eos % (Auto) 0.0 % 02/04/25 20:55 Baso % (Auto) 0.1 % 02/04/25 20:55 Neut # (Auto) 12.18 K/uL (1.40-6.50) H 02/04/25 20:55 Lymph # (Auto) 1.34 K/uL (1.20-3.40) 02/04/25 20:55 [place] # (Auto) 0.48 K/uL (0.11-0.59) 02/04/25 20:55 Eos # (Auto) 0.00 K/uL (0.00-0.50) 02/04/25 20:55 Baso # (Auto) 0.02 K/uL (0.00-0.20) 02/04/25 20:55 Immature Gran # (Auto) 0.12 K/uL (0.01-0.20) 02/04/25 20:55 Sodium 138 mmol/L (136-145) 02/04/25 20:55 Potassium 4.2 mmol/L (3.5-5.1) 02/04/25 20:55 Chloride 102 mmol/L (98-107) 02/04/25 20:55 Carbon Dioxide 25 mmol/L (21-32) 02/04/25 20:55 Anion Gap 11 (3-11) 02/04/25 20:55 BUN 17 mg/dl (6-23) 02/04/25 20:55 Creatinine 1.10 mg/dl (0.6-1.2) 02/04/25 20:55 Est Cr Clr Drug Dosing 48.9 ml/min 02/04/25 20:55 eGFR 51.75 02/04/25 20:55 BUN/Creatinine Ratio 15.5 (10-20) 02/04/25 20:55 Glucose 211 mg/dl (70-99(Fasting)) H 02/04/25 20:55 POC Glucose 136 mg/dl (70-99) H 02/04/25 06:36 Calcium 9.0 mg/dl (8.6-10.3) 02/04/25 20:55 Magnesium 1.7 mg/dl (1.7-2.4) 02/04/25 20:55 Impressions Spine X-Ray 02/04/25 07:30 FL spine 1V any level CLINICAL HISTORY: C2-C3 LAMI/FUSION COMPARISON STUDY: None FLUOROSCOPY TIME: 17 seconds FLUOROSCOPY IMAGES: 2 EXPOSURE DOSE: 5 mGy FINDINGS: Fluoroscopy was provided for cervical spine surgery. IMPRESSION: Intraoperative fluoroscopy. ACT 112: Negative or not required by law. Electronically signed by: Santiago Tovar M.D. 02/04/2025 12:19 PM Cervical Spine X-Ray 02/04/25 13:28 FL cervical 2-3V CLINICAL HISTORY: FUSION/LAMINECTOMY COMPARISON STUDY: MRI of the cervical spine November 17, 2024. Number of fluoroscopic images: 2. FINDINGS: Exact localization is difficult given suboptimal penetration. Fluoroscopy was provided during a multilevel cervical laminectomy and fusion. A surgical drain is in place. There are skin carol. Previous anterior discectomy and fusion hardware is noted. IMPRESSION: Fluoroscopy provided during multilevel cervical laminectomy and fusion. ACT 112: Negative or not required by law. Electronically signed by: Stepan Bose M.D. 02/04/2025 3:13 PM
[2025-02-05] MEDS: POLYETHYLENE (MIRALAX) 17 GM PACK PO SCH (05:55)
[2025-02-05 06:53] LABS: Hematocrit (blood only) 36.1 % (37.0-47.0); Hemoglobin 11.6 g/dl (12.0-16.0); Immature Granulocytes # (auto) 0.11 K/uL (0.01-0.20); Immature Granulocytes % (auto) 0.6 %; Mean Corpuscular Hemoglobin 25.4 pg (25.0-34.0); Mean Corpuscular Volume 79.2 fL (80.0-100.0); Platelet Count 266 K/uL (130-400); RDW Standard Deviation 40.9 fL (36.4-46.3); Red Blood Count 4.56 M/uL (4.20-5.40); White Blood Count 18.55 K/ul (4.8-10.8)
[2025-02-05 07:33] LABS: Anion Gap 9.0 (3-11); Blood Urea Nitrogen 17.0 mg/dl (6-23); Calcium 8.5 mg/dl (8.6-10.3); Carbon Dioxide 29.0 mmol/L (21-32); Chloride 102.0 mmol/L (98-107); Creatinine Clr Calc Pharmacy 48.5 ml/min; Glucose 126.0 mg/dl (70-99(Fasting)); Potassium 4.2 mmol/L (3.5-5.1); Sodium 140.0 mmol/L (136-145)
[2025-02-05] MEDS: ASCORBIC ACID 500 MG TAB PO SCH (08:17)
[2025-02-05] MEDS: VIBEGRON 75 MG TAB PO SCH (08:18)
[2025-02-05] MEDS: ATORVASTATIN 40 MG TAB PO SCH (08:18)
[2025-02-05] MEDS: LOSARTAN POTASSIUM 50 MG TAB PO SCH (08:18)
[2025-02-05] MEDS: CYANOCOBALAMIN (B-12) 2,500 MCG TABLET SL SCH (08:19)
[2025-02-05] MEDS: OXYBUTYNIN CHLORIDE XL 5 MG TABCR PO SCH (08:19)
[2025-02-05] MEDS: CEROVITE ADV FORMULA TAB PO SCH (08:19)
[2025-02-05] MEDS: CHOLECALCIFEROL 125 MCG (5,000 UNITS) TAB PO SCH (08:19)
--- NOTE | 2025-02-05 10:54 | Orthopedic Progress Note ---
Date of Service February 05, 2025 Assessment & Plan (1) S/P cervical spinal fusion: (2) Cervical myelopathy: (3) Lumbar radicular pain: Plan Will keep [place] until mobilizing order soft collar, recommend she wear this when OOB until ambulating safely (uses rolling walker at baseline) continue drains advance diet as tolerated upright xrays today appreciate hospitalist assistance with comorbidities will likely need rehab placement Subjective Still quite somnolent this morning but arouses to follow commands. No abnormal sensations this morning other than her chronic right leg radicular pain. Collar quite uncomfortable, labs ok today, drains functioning. Review of Systems All systems reviewed & are unremarkable except as noted in HPI & below. Physical Exam 5/5 strength upper extremities C5-T1 5/5 strength lower extremities L2-S1 except 4/5 right tib ant (chronic) drains functioning Results & Data Results & Data Laboratory Results . Diagnostic Findings . PG Care Time/CCT Total # of Minutes Spent Total Time Spent with Patient: Total time spent is greater than 50% in coordination of care (as documented) at patient's floor/unit and/or counseling patient: Coding Level of Care Code 68780 Post Operative Follow-Up Diagnoses S/P cervical spinal fusion Z98.1 Cervical myelopathy G95.9 Lumbar radicular pain M54.16
--- NOTE | 2025-02-05 12:16 | Hospitalist Progress Note ---
Date of Service February 05, 2025 Assessment & Plan (1) Cervical myelopathy: (2) Cervical stenosis of spinal canal: (3) S/P spinal surgery: Plan: Patient is a 75y/o F with PMHx significant for DM type II with proteinuria, left ovarian cyst, mixed HLD, MAGALY with CPAP noncompliance, HTN, thoracic aortic aneurysm, morbid obesity, urge incontinence, chronic bilateral low back pain with bilateral sciatica, narcolepsy, history of TIA, depression and past tobacco use who is being seen in consultation for routine postoperative medical management after undergoing elective C2-C3 laminectomy and fusion performed by Dr. Steinberg on 02/04/25. Postoperative course c/b spinal epidural hematoma formation requiring emergent evacuation in the OR later in the evening on 02/04/25 due to a malfunctioning surgical drain. Pt feeling dizzy this AM upon sitting up --> ? 2/2 to reaction from anesthesia SBP stable in the 120s, other VSS; dizziness improved upon lying down --> bedrest encouraged for now C-collar causing significant discomfort -TT sent to Dr. Steinberg regarding this --> soft collar ordered for better fit/comfort -Needs to wear C-collar when OOB until ambulating safely (uses rolling walker at baseline) -Can remove C-collar while lying in bed Appreciate PT/OT evals once dizziness resolves Hold parameters for narcotics and neuropsychotropic medications for sedation/confusion Pain control, bowel regimen as per ortho spine Can advance MORENITA per d/w Dr. Steinberg Continue surgical drains as per ortho spine (4) Acute postoperative pulmonary insufficiency: Plan: Multifactorial 2/2 anesthesia effects, narcotics, likely component of atelectasis as well given discomfort w/ C-collar Was transiently hypoxic down to 85% SpO2 requiring 2L NC this AM -Will trial off O2 today per pt's request (5) Leukocytosis: Plan: Likely 2/2 intraop corticosteroids Procal neg Low suspicion for superimposed infection Continue to monitor (6) Acute blood loss anemia: Plan: ISO expected surgical loss Likely dilutional component contributing as well No indication to transfuse at this time Continue to monitor (7) Diabetes type 2: Plan: SSI protocol while inpt BSG checks stable Hgb A1c 5.9% in 12/2024 Other chronic medical conditions: HLD - continue statin H/o TIA - resume aspirin ASA as deemed by ortho spine HTN - BP on softer side; hold Norvasc, hydralazine for now; continue losartan and monitor BP trend DVT Prophylaxis: As per ortho spine Disposition: D/c planning as per ortho spine We will follow the patient with you during their hospital stay. You can reach a member of the [place] [facility] Hospitalist Team 20/01 via [employer]. Patient seen in collaboration with Dr. Valencia. Please see addendum. I spent a total of 36 minutes coordinating, documenting, and providing care for this patient excluding time spent in the performance of separately billed services or time spent by another provider/QHP. This included personally reviewing all current laboratories and imaging studies, medical reconciliation, outpatient chart review and discussion with specialists. This chart was completed in part utilizing Speech Voice Recognition Software. Grammatical errors, random word insertions, pronoun errors, and incomplete sentences are an occasional consequence of this system due to software limitations, ambient noise, and hardware issues. Any formal questions or concerns about the content, text, or information contained within the body of this dictation should be directly addressed to the provider for clarification. Admission and Anticipated Discharge Date Admission Date: February 04, 2025 Subjective Patient seen and examined in room S235-1. Underwent C2-C3 laminectomy and fusion performed by Dr. Steinberg on 02/04/25 with postoperative course last evening complicated by spinal epidural hematoma formation secondary to a malfunctioning surgical drain which required emergent evacuation in the OR. Patient feeling quite dizzy this morning. Requesting multiple times to remove her cervical collar while sitting up at side of bed as it is extremely uncomfortable. Education provided on the importance of wearing the cervical collar when not lying down in bed as directed by Dr. Steinberg. Did discuss with Dr. Steinberg over TT. Plan on getting her a another cervical collar that fits her better. Surgical drains (x2) functioning. 20cc removed from each drain while I was in the room. Dizziness resolved upon lying down with assistance from nursing staff. SBP 120s this AM prior to my arrival. Requiring 2L NC for postoperative hypoxia. Patient denies any SOB, cough or chest pain. Review of Systems Review of Systems: At least ten systems reviewed and negative, except as noted in the subjective section. Physical Exam Physical Exam: General: Obese F, sitting up at side of bed, A&Ox3 but sleepy, NAD, appears uncomfortable 2/2 C-collar HEENT: C-collar in place, surgical dressing on posterior aspect of neck C/D/I, surgical drains (x2) draining serosanguineous outpt, oropharynx moist Respiratory: Normal respiratory effort, CTAB, no accessory muscle use Cardiovascular: RRR, no BLE edema, normal peripheral pulses Abdomen/GI: Active bowel sounds, soft, nontender to palpation in all quadrants Extremities/MSK: 5/5 strength in BUE and BLE, actively moves all extremities Neurologic: No overt focal deficits, CN's II-XI not formally tested but appear grossly intact bilaterally Results & Data Results & Data Vital Signs (Past 12 Hours) Vital Signs Temp Pulse Pulse Pulse Resp BP BP 02/05/25 11:41 36.8 C 89 20 121/71 02/05/25 09:39 02/05/25 07:30 02/05/25 07:13 36.7 C 78 16 125/82 02/05/25 05:45 36.7 C 81 16 02/05/25 05:12 85 02/05/25 03:31 36.8 C 85 16 121/71 02/05/25 02:21 84 16 02/05/25 01:45 36.6 C 91 H 16 131/69 Pulse Ox O2 Del Method O2 Flow Rate 02/05/25 11:41 98 Nasal Cannula 2 02/05/25 09:39 Nasal Cannula 2 02/05/25 07:30 Room Air 02/05/25 07:13 95 Room Air 02/05/25 05:45 94 Nasal Cannula 2 02/05/25 05:12 02/05/25 03:31 99 Nasal Cannula 2 02/05/25 02:21 99 Nasal Cannula 2 02/05/25 01:45 98 Nasal Cannula 2 Laboratory Results Short CBC 02/04/25 02/05/25 Range/Units 20:55 06:31 WBC 14.14 H 18.55 H (4.8-10.8) K/ul Hgb 13.7 11.6 L (12.0-16.0) g/dl Hct 43.2 36.1 L (37.0-47.0) % Plt Count 269 266 (130-400) K/uL BMP 02/04/25 02/05/25 20:55 06:31 Sodium 138 140 Potassium 4.2 4.2 Chloride 102 102 Carbon Dioxide 25 29 BUN 17 17 Creatinine 1.10 1.11 Glucose 211 H 126 H Calcium 9.0 8.5 L (5) Leukocytosis Leukocytosis type: unspecified Qualified Code(s): D72.829 - Elevated white blood cell count, unspecified (7) Diabetes type 2 Diabetes mellitus fpc insulin use: unspecified terminal makeup operator insulin use status Diabetes mellitus complication status: with other specified complication Qualified Code(s): E11.69 - Type 2 diabetes mellitus with other specified complication
--- NOTE | 2025-02-05 22:44 | Communication Note ---
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 Dr. Ko (orthopedist on-call) okay with transfer as per RN.
[2025-02-06 06:32] LABS: Hematocrit (blood only) 37.8 % (37.0-47.0); Hemoglobin 12.0 g/dl (12.0-16.0); Immature Granulocytes # (auto) 0.07 K/uL (0.01-0.20); Immature Granulocytes % (auto) 0.6 %; Mean Corpuscular Hemoglobin 25.6 pg (25.0-34.0); Mean Corpuscular Volume 80.8 fL (80.0-100.0); Platelet Count 249 K/uL (130-400); RDW Standard Deviation 42.5 fL (36.4-46.3); Red Blood Count 4.68 M/uL (4.20-5.40); White Blood Count 11.27 K/ul (4.8-10.8)
[2025-02-06 07:07] LABS: Anion Gap 4.0 (3-11); Blood Urea Nitrogen 16.0 mg/dl (6-23); Calcium 8.6 mg/dl (8.6-10.3); Carbon Dioxide 35.0 mmol/L (21-32); Chloride 102.0 mmol/L (98-107); Creatinine Clr Calc Pharmacy 63.3 ml/min; Glucose 129.0 mg/dl (70-99(Fasting)); Magnesium 1.9 mg/dl (1.7-2.4); Potassium 4.1 mmol/L (3.5-5.1); Sodium 141.0 mmol/L (136-145)
--- NOTE | 2025-02-06 07:38 | Hospitalist Progress Note ---
Date of Service February 06, 2025 Assessment & Plan (1) Cervical myelopathy: (2) Cervical stenosis of spinal canal: (3) S/P spinal surgery: Plan: Patient is a 75y/o F with PMHx significant for DM type II with proteinuria, left ovarian cyst, mixed HLD, MAGALY with CPAP noncompliance, HTN, thoracic aortic aneurysm, morbid obesity, urge incontinence, chronic bilateral low back pain with bilateral sciatica, narcolepsy, history of TIA, depression and past tobacco use who is being seen in consultation for routine postoperative medical management after undergoing elective C2-C3 laminectomy and fusion performed by Dr. Steinberg on 02/04/25. Postoperative course c/b spinal epidural hematoma formation requiring emergent evacuation in the OR later in the evening on 02/04/25 due to a malfunctioning surgical drain. Was previously feeling dizzy yesterday --> improving VSS, surgical dressing C/D/I and WILLIAN drains (x2) appear to be functioning w/o issue Appreciate PT/OT evals -Needs to wear C-collar when OOB until ambulating safely (uses rolling walker at baseline) -Can remove C-collar while lying in bed Soft C-collar exchanged yesterday from rigid C-collar 2/2 discomfort Hold parameters for narcotics and neuropsychotropic medications for sedation/confusion Pain control, bowel regimen as per ortho spine Tolerating diet w/o issue Maintain surgical drains as per ortho spine (4) Acute postoperative pulmonary insufficiency: Plan: Multifactorial 2/2 anesthesia effects, narcotics, likely component of atelectasis as well Was transiently hypoxic down to 85% SpO2 requiring 2L NC yesterday -Weaned down to 1L NC this AM -Trial off O2 today (5) Leukocytosis: Plan: Likely 2/2 intraop corticosteroids Procal neg Low suspicion for superimposed infection WBC improving Continue to monitor (6) Acute blood loss anemia: Plan: ISO expected surgical loss Likely dilutional component contributing as well H/H stabilized Continue to monitor (7) Diabetes type 2: Plan: SSI protocol while inpt BSG checks stable Hgb A1c 5.9% in 12/2024 Other chronic medical conditions: HLD - continue statin H/o TIA - resume aspirin ASA as deemed by ortho spine HTN - Resume hydralazine, continue losartan; will continue to hold Norvasc for now, can resume as BP gradually improves DVT Prophylaxis: As per ortho spine Disposition: D/c planning as per ortho spine; suspect will need rehab placement We will follow the patient with you during their hospital stay. You can reach a [facility]01 via [employer]. Patient seen in collaboration with Dr. Valencia. Please see addendum. I spent a total of 34 minutes coordinating, documenting, and providing care for this patient excluding time spent in the performance of separately billed services or time spent by another provider/QHP. This included personally reviewing all current laboratories and imaging studies, medical reconciliation, outpatient chart review and discussion with specialists. This chart was completed in part utilizing Speech Voice Recognition Software. Grammatical errors, random word insertions, pronoun errors, and incomplete sentences are an occasional consequence of this system due to software limitations, ambient noise, and hardware issues. Any formal questions or concerns about the content, text, or information contained within the body of this dictation should be directly addressed to the provider for clarification. Admission and Anticipated Discharge Date Admission Date: February 04, 2025 Subjective Patient seen and examined in W362-1. Downgraded to med/surg overnight. Sleepy but easily arousable. Endorses neck pain and discomfort. Denies any difficulty breathing/SOB or chest pain. Has not been up and walking yet. Did get a chance to stand up at side of bed with nursing staff last evening. Dizziness improved. Review of Systems Review of Systems: At least ten systems reviewed and negative, except as noted in the subjective section. Physical Exam Physical Exam: General: Obese F, laying down in bed, very sleepy but easily arousable and A&Ox with conversation, NAD HEENT: C-collar off while laying in bed, surgical dressing on posterior aspect of neck C/D/I, surgical drains (x2) draining serosanguineous outpt, oropharynx moist Respiratory: Normal respiratory effort, CTAB, no accessory muscle use Cardiovascular: RRR, no BLE edema, normal peripheral pulses Abdomen/GI: Active bowel sounds, soft, nontender to palpation in all quadrants Extremities/MSK: Actively moves all extremities Neurologic: No overt focal deficits, CN's II-XI not formally tested but appear grossly intact bilaterally Results & Data Results & Data Vital Signs (Past 12 Hours) Vital Signs Temp Pulse Pulse Resp BP BP Pulse Ox 02/06/25 07:15 70 16 93 02/06/25 04:56 36.4 C L 60 18 162/77 H 98 02/06/25 02:20 63 16 97 02/06/25 00:37 02/06/25 00:25 36.5 C 61 18 157/94 H 99 02/05/25 23:27 36.8 C 63 18 149/87 H 99 02/05/25 22:19 71 16 99 02/05/25 21:52 67 02/05/25 21:21 36.9 C 75 18 142/71 H 97 02/05/25 20:00 72 16 96 02/05/25 20:00 02/05/25 19:48 36.8 C 66 18 145/76 H 98 O2 Del Method O2 Flow Rate 02/06/25 07:15 Nasal Cannula 2 02/06/25 04:56 Nasal Cannula 2 02/06/25 02:20 Nasal Cannula 2 02/06/25 00:37 Nasal Cannula 2 02/06/25 00:25 Nasal Cannula 2 02/05/25 23:27 Nasal Cannula 2 02/05/25 22:19 Nasal Cannula 2 02/05/25 21:52 02/05/25 21:21 Nasal Cannula 2 02/05/25 20:00 Nasal Cannula 2 02/05/25 20:00 Nasal Cannula 2 02/05/25 19:48 Nasal Cannula 2 Laboratory Results Short CBC 02/06/25 Range/Units 05:55 WBC 11.27 H (4.8-10.8) K/ul Hgb 12.0 (12.0-16.0) g/dl Hct 37.8 (37.0-47.0) % Plt Count 249 (130-400) K/uL BMP 02/06/25 05:55 Sodium 141 Potassium 4.1 Chloride 102 Carbon Dioxide 35 H BUN 16 Creatinine 0.85 Glucose 129 H Calcium 8.6 (5) Leukocytosis Leukocytosis type: unspecified Qualified Code(s): D72.829 - Elevated white blood cell count, unspecified (7) Diabetes type 2 Diabetes mellitus complication status: with other specified complication 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
--- NOTE | 2025-02-06 10:50 | Orthopedic Progress Note ---
Date of Service February 06, 2025 Subjective Patient seen and examined, she notes some incisional pain, but still feels the upper extremities are improved since the surgery. No specific symptoms of numbness and tingling in the upper extremities. 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 Drains output 30 to 40 cc last shift. Impression: Postoperative day 2 from C2-3 posterior decompression instrumentation and arthrodesis, stable postoperative course. Plan: Will try to reduce the pain medicine intake, mobilize to chair possibly to bathroom depending on recommendations from physical therapy, maintain drains for now. Review of Systems All systems reviewed & are unremarkable except as noted in HPI & below. Physical Exam . Results & Data Results & Data Laboratory Results . Diagnostic Findings . PG Care Time/CCT Total # of Minutes Spent Total Time Spent with Patient: Total time spent is greater than 50% in coordination of care (as documented) at patient's floor/unit and/or counseling patient: Coding Level of Care Code 01541 Post Operative Follow-Up
--- NOTE | 2025-02-06 17:32 | XRay Report ---
EXAM: XR cervical spine 2 or 3V CLINICAL HISTORY: Post-op spine surgery TECHNIQUE: X-ray images of the cervical spine were obtained in anteroposterior (AP), lateral projections and odontoid view. COMPARISON: 11/16/2024 FINDINGS: Alignment: No evidence of acute fracture. Post spinal fixation status from C3-C5 levels with intervertebral fusion. Good alignment of the metallic hardware is identified. No evidence of loosening or signs of infection. Loss of cervical lordosis with straightening of curvature. Diffuse osteopenic changes noted. Multilevel anterior and posterior osteophytes with uncovertebral hypertrophy were noted. Atlantodental mild osteoarthritic changes. Severe degenerative changes of the facetal joints. Diffuse osteopenic texture. Vertebral Bodies and Intervertebral Disc Spaces: C3-C4 and C4-C5 intervertebral fusion Soft Tissues: Prevertebral soft tissues are of normal thickness. No evidence of prevertebral soft tissue swelling or mass effect. C6/7 is not seen by the patient's shoulder shadow. Additional Findings: No other significant abnormalities noted. IMPRESSION: 1. No evidence of acute fracture. 2. Post spinal fixation status from C3-C5 levels with intervertebral fusion. Satisfactory alignment of the metallic hardware is identified. No evidence of loosening or signs of infection. 3. Advanced cervical spondylodegenerative changes as described above. 4. Diffuse osteopenic texture. 5. No interval changes. Disclaimer: A subtle bone abnormality or fracture may not be readily apparent on X-rays, thus clinical correlation and further imaging including follow-up CT, MRI, or follow-up X-rays are advised as needed. Electronically signed by Ruben Irwin 02-06-2025 5:32 PM
[2025-02-07 08:33] LABS: Hematocrit (blood only) 39.0 % (37.0-47.0); Hemoglobin 11.9 g/dl (12.0-16.0); Immature Granulocytes # (auto) 0.05 K/uL (0.01-0.20); Immature Granulocytes % (auto) 0.5 %; Mean Corpuscular Hemoglobin 24.9 pg (25.0-34.0); Mean Corpuscular Volume 81.8 fL (80.0-100.0); Platelet Count 259 K/uL (130-400); RDW Standard Deviation 42.9 fL (36.4-46.3); Red Blood Count 4.77 M/uL (4.20-5.40); White Blood Count 9.93 K/ul (4.8-10.8)
[2025-02-07 08:51] LABS: Anion Gap 4.0 (3-11); Blood Urea Nitrogen 15.0 mg/dl (6-23); Calcium 8.8 mg/dl (8.6-10.3); Carbon Dioxide 35.0 mmol/L (21-32); Chloride 100.0 mmol/L (98-107); Creatinine Clr Calc Pharmacy 64.9 ml/min; Glucose 135.0 mg/dl (70-99(Fasting)); Magnesium 1.9 mg/dl (1.7-2.4); Potassium 3.8 mmol/L (3.5-5.1); Sodium 139.0 mmol/L (136-145)
--- NOTE | 2025-02-07 11:19 | Hospitalist Progress Note ---
Date of Service February 07, 2025 Assessment & Plan (1) Cervical myelopathy: (2) Cervical stenosis of spinal canal: (3) S/P spinal surgery: (4) Postoperative hypoxia: (5) Acute blood loss anemia: (6) Leukocytosis: (7) Diabetes type 2: Plan 75 year old female with PMH significant for DM type II with proteinuria, left ovarian cyst, mixed HLD, MAGALY with CPAP noncompliance, HTN, thoracic aortic aneurysm, morbid obesity, urge incontinence, chronic bilateral low back pain with bilateral sciatica, narcolepsy, history of TIA, depression, and cervical spine stenosis with myelopathy who presented on 02/04/2025 for C2-C3 laminectomy and fusion with Dr. Steinberg. Post op complication of spinal epidural hematoma formation requiring emergent evacuation in the OR later in the evening on 02/04/2025 due to a malfunctioning surgical drain. We have been consulted for post operative medical management. Cervical spine stenosis with myelopathy POD#3 C2-C3 laminectomy and fusion, epidural hematoma evacuation on 02/04/[address] Steinberg Activity level, pain control, DVT prophylaxis, bowel regimen per primary team Encourage use of cervical collar while OOB Monitor labs PT/OT recommending rehab Postoperative hypoxia Likely due to anesthesia effects, narcotics, likely component of atelectasis as well Hypoxic to 85% on POD#1 (02/05/2025) requiring O2 via NC On 2L NC - wean as tolerated Encourage incentive spirometer Acute blood loss anemia Preop Hgb 13.7->11.9 today Stabilized and patient asymptomatic Continue to monitor Leukocytosis, resolved Likely due to steroids Resolved Diabetes type 2 A1C 5.9% in December 2024 BSG ACHS and SSI while inpatient Hypertension Continue losartan, amlodipine, hydralazine Hyperlipidemia Continue atorvastatin History TIA Resume baby aspirin per primary team Narcolepsy Home armodafinil is non-formulary DVT Prophylaxis: TEDs/SCDs per primary team Code Status: FULL CODE PCP: Delvin Howard Disposition: rehab at discharge Thank you for this consultation. We will continue to follow this patient with you. A member of the [facility] team is available 20/01 via the role in [employer] - please don't hesitate to reach out with questions. Patient seen in collaboration with Dr Valencia. Please see addendum. I spent a total of 50 minutes coordinating, documenting and providing care for this patient excluding time spent in the performance of separately billed services or time spent by another provider/QHP. Admission and Anticipated Discharge Date Admission Date: February 04, 2025 Subjective Patient seen laying in bed Reports mild pain in her neck and shoulders Denies numbness/tingling in the arms, chest pain, SOB, abdominal pain Worked with OT this morning Review of Systems Review of Systems: All systems reviewed & are unremarkable except as noted in Subjective Physical Exam Physical Exam: General/Psych: WD/WN, laying in bed, NAD, drowsy Head: normocephalic, atraumatic Eyes: normal inspection, PERRL, conjunctivae pink ENT: external ear and nose normal, oropharynx normal Neck: normal visual inspection, trachea midline Respiratory: normal respiratory effort, lungs clear to auscultation, no wheeze/rales/rhonchi, no accessory muscle use Cardiovascular: regular rate and rhythm, no murmur/rub/gallop, no JVD Extremities: no cyanosis or clubbing, normal peripheral pulses, no BLE edema, TEDs in place Abdomen/GI: normal bowel sounds, soft, nontender : salinas in place Neurologic/MSK: A+Ox3, motor strength 5/5, moves all extremities, sensation intact BUE Skin: no rashes, normal color, warm and dry; dressing c/d/i, WILLIAN drain x2 with serosanguinous drainage Results & Data Results & Data Vital Signs (Past 12 Hours) Vital Signs Temp Pulse Pulse Resp BP BP Pulse Ox 02/07/25 08:14 82 16 98 02/07/25 07:07 36.7 C 58 L 18 146/83 H 99 02/07/25 02:05 86 16 98 02/06/25 23:12 170/92 H O2 Del Method O2 Flow Rate 02/07/25 08:14 Nasal Cannula 2 02/07/25 07:07 Nasal Cannula 2 02/07/25 02:05 Nasal Cannula 2 02/06/25 23:12 Laboratory Results Short CBC 02/07/25 Range/Units 07:40 WBC 9.93 (4.8-10.8) K/ul Hgb 11.9 L (12.0-16.0) g/dl Hct 39.0 (37.0-47.0) % Plt Count 259 (130-400) K/uL BMP 02/07/25 07:40 Sodium 139 Potassium 3.8 Chloride 100 Carbon Dioxide 35 H BUN 15 Creatinine 0.83 Glucose 135 H Calcium 8.8 I have independently reviewed and interpreted patient's labs including CBC, BMP, mag Medications Administered Current Inpatient Medications Acetaminophen (Acetaminophen 500 Mg Tab) 1,000 mg PO Q8H PRN PRN Reason: MILD Pain (1,2,3) & Pre PT Stop: 03/06/25 19:14 Last Admin: 02/07/25 04:39 Dose: 1,000 mg Al Hydrox/Mg Hydrox/Simethicone (Aluminum/Magnesium Susp 30 Ml Udc) 30 ml PO Q6H PRN PRN Reason: Dyspepsia Stop: 03/06/25 19:14 Amlodipine Besylate (Amlodipine Besylate 5 Mg Tab) 10 mg PO QAM STEPHANIE Stop: 03/07/25 08:59 Last Admin: 02/07/25 10:09 Dose: 10 mg Ascorbic Acid (Ascorbic Acid 500 Mg Tab) 1,000 mg PO DAILY STEPHANIE Stop: 03/07/25 08:59 Last Admin: 02/07/25 08:08 Dose: 1,000 mg Atorvastatin Calcium (Atorvastatin 40 Mg Tab) 40 mg PO QAM STEPHANIE Stop: 03/07/25 08:59 Last Admin: 02/07/25 08:08 Dose: 40 mg Bisacodyl (Bisacodyl 10 Mg Supp) 10 mg NE DAILY PRN PRN Reason: Constipation Stop: 03/06/25 19:14 Cyanocobalamin (Cyanocobalamin (B-12) 2,500 Mcg Tablet) 2,500 mcg SL DAILY STEPHANIE Stop: 03/07/25 08:59 Last Admin: 02/07/25 08:07 Dose: 2,500 mcg Dextrose (Dextrose 50% 50 Ml Syringe) 25 - 50 ml IV UD PRN; Protocol PRN Reason: Hypoglycemia Protocol Stop: 03/06/25 21:52 Diphenhydramine HCl (Diphenhydramine Capsule 25 Mg Cap) 25 mg PO Q6H PRN PRN Reason: Allergic Rhinitis/Insomnia Stop: 03/06/25 19:14 Duloxetine HCl (Duloxetine Hcl 60 Mg Cap) 60 mg PO HS STEPHANIE Stop: 03/06/25 20:59 Last Admin: 02/06/25 20:22 Dose: 60 mg Epinephrine (Racepinephrine 2.25% Nebu Soln 0.5 Ml Vial) 0.5 ml INH NOW PRN PRN Reason: If stridor present Famotidine (Famotidine 20 Mg Tab) 20 mg PO Q12H PRN PRN Reason: Dyspepsia Stop: 03/06/25 19:14 Glucagon (Glucagon For Inj 1 Mg Vial) 1 mg SQ UD PRN; Protocol PRN Reason: Hypoglycemia Protocol Stop: 03/06/25 21:52 Glucose (Glucose 40% Gel 15 Gm Tube) 15 - 30 gm PO UD PRN; Protocol PRN Reason: Hypoglycemia Protocol Stop: 03/06/25 21:52 Glucose (Glucose 10 Tab/Tube) 4 - 8 tab PO UD PRN; Protocol PRN Reason: Hypoglycemia Protocol Stop: 03/06/25 21:52 Hydralazine HCl (Hydralazine Hcl 25 Mg Tab) 25 mg PO BID STEPHANIE Stop: 03/06/25 20:59 Last Admin: 02/07/25 08:08 Dose: 25 mg Hydromorphone HCl (Hydromorphone Inj 0.5 Mg/0.5 Ml Syr) 0.5 mg IV Q3H PRN PRN Reason: MODERATE Pain(4,5,6)/Pre PT Stop: 02/18/25 19:14 Last Admin: 02/06/25 05:53 Dose: 0.5 mg Hydromorphone HCl (Hydromorphone Inj 1 Mg/Ml Syringe) 1 mg IV Q3H PRN PRN Reason: SEVERE Pain (7,8,9,10) Stop: 02/18/25 19:14 Hydroxyzine HCl (Hydroxyzine Hcl 25 Mg Tab) 25 mg PO Q8H PRN PRN Reason: Anxiety Stop: 03/06/25 19:14 Dexamethasone 8 mg/ Syringe 2 mls @ 1 mls/min IV NOW PRN PRN Reason: If stridor present Promethazine HCl (Phenergan) 12.5 mg in 50.5 mls @ 202 mls/hr IV Q6H PRN PRN Reason: Nausea And Vomiting Stop: 03/06/25 19:14 Cefazolin Sodium (Ancef 2000mg) 2,000 mg in 15 mls @ 3.75 mls/min IV Q8H STEPHANIE Stop: 02/08/25 13:59 Last Admin: 02/07/25 05:12 Dose: 3.75 mls/min Influenza Virus Vaccine Quadrival (Do Not Administer Flu Vaccine) 1 each N/A PRN PRN PRN Reason: Notification Stop: 03/06/25 19:14 Insulin Aspart (Insulin Aspart Per Unit Charge) 0 units SC ACHS [facility] Stop: 03/06/25 21:54 Last Admin: 02/07/25 08:09 Dose: 4 units Lorazepam (Lorazepam 0.5 Mg Tab) 0.5 mg PO Q8H PRN PRN Reason: Sedation/Anxiety Stop: 03/06/25 19:14 Lorazepam (Lorazepam 2 Mg/1 Ml Vial) 0.5 mg IV Q8H PRN PRN Reason: Sedation/Anxiety Stop: 03/06/25 19:14 Losartan Potassium (Losartan Potassium 50 Mg Tab) 100 mg PO QAM [facility] Stop: 03/07/25 08:59 Last Admin: 02/07/25 08:08 Dose: 100 mg Magnesium Hydroxide (Magnesium Hydroxide Susp 30 Ml Udc) 30 ml PO Q24H PRN PRN Reason: Constipation Stop: 03/06/25 19:14 Magnesium Oxide (Magnesium Oxide 400 Mg Tab) 400 mg PO HS STEPHANIE Stop: 03/06/25 20:59 Last Admin: 02/06/25 20:22 Dose: 400 mg Miscellaneous (Armodafinil 250 Mg Tablet ~ Order Awaiting Action) 1 each N/A QS [facility] Stop: 03/07/25 00:00 Last Admin: 02/07/25 08:07 Dose: Not Given Miscellaneous (Carbohydrates For Hypoglycemia ) 15 - 30 gm PO UD PRN PRN Reason: Hypoglycemia Protocol Stop: 03/06/25 21:52 Multivitamins/Minerals (Cerovite Adv Formula Tab) 1 tab PO QAM [facility] Stop: 03/07/25 08:59 Last Admin: 02/07/25 08:08 Dose: 1 tab Naloxone HCl (Naloxone Hcl 0.4 Mg/1 Ml Vial/Carp) 0.1 mg IV Q5M PRN PRN Reason: Oversedation/Resp depression Stop: 03/06/25 19:14 Ondansetron HCl (Ondansetron Inj 2 Mg/Ml 2 Ml Vial) 4 mg IV Q6H PRN PRN Reason: Nausea &/or Vomiting Stop: 03/06/25 19:14 Ondansetron HCl (Ondansetron 4 Mg Od Tab) 4 mg PO Q6H PRN PRN Reason: Nausea Stop: 03/06/25 19:14 Oxybutynin Chloride (Oxybutynin Chloride Xl 5 Mg Tabcr) 5 mg PO DAILY [facility] Stop: 03/07/25 08:59 Last Admin: 02/07/25 08:08 Dose: 5 mg Oxycodone HCl (Oxycodone Hcl Ir 5 Mg Tab (Immediate Release)) 5 - 10 mg PO Q4H PRN PRN Reason: MOD/SEV Pain & Pre PT Stop: 02/18/25 19:14 Last Admin: 02/07/25 06:05 Dose: 10 mg Pneumococcal Polyvalent Vaccine (Do Not Administer Pneumococcal Vaccine) 1 each N/A PRN PRN PRN Reason: Notification Stop: 03/06/25 19:14 Polyethylene Glycol (Polyethylene (Miralax) 17 Gm Pack) 17 gm PO Q6 [facility] Stop: 03/07/25 05:59 Last Admin: 02/07/25 05:12 Dose: 17 gm Senna/Docusate Sodium (Docusate Sodium/Senna 50/8.6mg Tab) 2 tab PO HS [facility] Stop: 03/06/25 20:59 Last Admin: 02/06/25 20:22 Dose: 2 tab Sodium Biphosphate/Sodium Phosphate (Sod Phosphate/Sod Biphosphate Enema 132 Ml Btl) 132 ml NE ONE PRN PRN Reason: Constipation Stop: 03/06/25 19:14 Tizanidine HCl (Tizanidine Hcl 4 Mg Tablet) 4 mg PO Q8H PRN PRN Reason: Muscle Spasm Stop: 03/06/25 19:14 Last Admin: 02/06/25 16:55 Dose: 4 mg Vibegron (Vibegron 75 Mg Tab) 75 mg PO QAM [facility] Stop: 03/07/25 08:59 Last Admin: 02/07/25 08:08 Dose: 75 mg Vitamin D (Cholecalciferol 125 Mcg (5,000 Units) Tab) 125 mcg PO QAM [facility] Stop: 03/07/25 08:59 Last Admin: 02/07/25 08:08 Dose: 125 mcg (6) Leukocytosis Leukocytosis type: unspecified Qualified Code(s): D72.829 - Elevated white blood cell count, unspecified (7) Diabetes type 2 Diabetes mellitus complication status: with other specified complication Diabetes mellitus half-way insulin use: unspecified half-way insulin use status Qualified Code(s): E11.69 - Type 2 diabetes mellitus with other specified complication
--- NOTE | 2025-02-07 12:35 | Orthopedic Progress Note ---
Date of Service February 07, 2025 Assessment & Plan (1) S/P cervical spinal fusion: will dc smaller drain today, change dressing salinas out mobilize with PT pain control, minimize narcotics dispo planning to rehab Subjective s/p cervical decompression and fusion, doing well, more alert today, pain controlled. Ambulated around bed with PT. Review of Systems All systems reviewed & are unremarkable except as noted in HPI & below. Physical Exam 5/5 strength upper extremities C5-T1 5/5 strength lower extremities L2-S1 except 4/5 right tib ant (chronic) drains functioning Results & Data Results & Data Laboratory Results . Diagnostic Findings . PG Care Time/CCT Total # of Minutes Spent Total Time Spent with Patient: Total time spent is greater than 50% in coordination of care (as documented) at patient's floor/unit and/or counseling patient: Coding Level of Care Code 77908 Post Operative Follow-Up Diagnoses S/P cervical spinal fusion Z98.1
[2025-02-07] MEDS: HYDROmorphone INJ 1 MG/ML SYRINGE IV PRN (21:25)
--- NOTE | 2025-02-08 09:14 | Orthopedic Progress Note ---
Date of Service February 08, 2025 Assessment & Plan (1) S/P cervical spinal fusion: * Continue Current Treatment * Disposition: rehab * Remaining drain removed today. Local wound care/dressing change PRN * Daily treatment: Physical Therapy/ Occupational Therapy per protocol * Weight bearing status: WBAT * Soft collar for comfort * Pain control * No NSAIDs, DVT ppx * Office/hospital f/u 2 weeks for progress check and staple/suture removal * Plan for discharge today pending PT/OT rehab placement Subjective . Active Problems: S/p cervical decompression and fusion POD 4 75 y/o female s/p cervical decompression and fusion. Doing well overall, pain managed and improved function. Denies fever/chills, chest pain/SOB, nausea/vomiting. Otherwise no complaints. Review of Systems All systems reviewed & are unremarkable except as noted in HPI & below. Physical Exam . General: Alert and oriented, no acute distress * Constitutional: well-developed, well-nourished. * Respiratory: Normal respiratory effort, no distress * Gastrointestinal: No tenderness to palpation, no rigidity or guarding. * Skin: No rash or lesion. * Neurologic: Grossly normal * Musculoskeletal: Surgical dressing CDI. Cervical spine region without obvious deformity or overlying skin changes. Minimal tenderness of surgical region, otherwise no tenderness b/l UE. Neck ROM with minimal pain. AROM b/l shoulder flexion, elbow flexion/extension, wrist flexion/extension intact. Sensation intact radial/median/ulnar nerve distributions. Brisk capillary refill. Results & Data Results & Data Laboratory Results . Diagnostic Findings . PG Care Time/CCT Total # of Minutes Spent Total Time Spent with Patient: Total time spent is greater than 50% in coordination of care (as documented) at patient's floor/unit and/or counseling patient: Coding Level of Care Code 10490 Post Operative Follow-Up Diagnoses S/P cervical spinal fusion Z98.1
[2025-02-08 10:22] LABS: Hematocrit (blood only) 40.0 % (37.0-47.0); Hemoglobin 12.9 g/dl (12.0-16.0); Mean Corpuscular Hemoglobin 25.8 pg (25.0-34.0); Mean Corpuscular Volume 80.0 fL (80.0-100.0); Platelet Count 290 K/uL (130-400); RDW Standard Deviation 41.1 fL (36.4-46.3); Red Blood Count 5.00 M/uL (4.20-5.40); White Blood Count 9.19 K/ul (4.8-10.8)
[2025-02-08 10:54] LABS: Anion Gap 9.0 (3-11); Calcium 9.2 mg/dl (8.6-10.3); Carbon Dioxide 31.0 mmol/L (21-32); Chloride 98.0 mmol/L (98-107); Potassium 3.5 mmol/L (3.5-5.1); Sodium 138.0 mmol/L (136-145)
[2025-02-08 11:00] LABS: Blood Urea Nitrogen 16.0 mg/dl (6-23); Creatinine Clr Calc Pharmacy 50.8 ml/min; Glucose 202.0 mg/dl (70-99(Fasting))
--- NOTE | 2025-02-08 11:54 | Hospitalist Progress Note ---
<Statement entered by Darin Valencia, DO - 02/08/25 14:50> I have seen and examined the patient and have discussed the case with the advance practice provider. I have reviewed the advanced practitioner's documentation, and I agree with, and take responsibility for that plan of care. Patient feels she is progressing and understands need for additional therapies at rehab. I spent a total of 8 minutes coordinating, documenting, and providing care for this patient excluding time spent by another provider/QHP. Date of Service February 08, 2025 Assessment & Plan (1) Cervical myelopathy: (2) Cervical stenosis of spinal canal: (3) S/P spinal surgery: (4) Postoperative hypoxia: (5) Acute blood loss anemia: (6) Leukocytosis: (7) Diabetes type 2: Plan 75 year old female with PMH significant for DM type II with proteinuria, left ovarian cyst, mixed HLD, MAGALY with CPAP noncompliance, HTN, thoracic aortic aneurysm, morbid obesity, urge incontinence, chronic bilateral low back pain with bilateral sciatica, narcolepsy, history of TIA, depression, and cervical spine stenosis with myelopathy who presented on 02/04/2025 for C2-C3 laminectomy and fusion with Dr. Steinberg. Post op complication of spinal epidural hematoma formation requiring emergent evacuation in the OR later in the evening on 02/04/2025 due to a malfunctioning surgical drain. We have been consulted for post operative medical management. Cervical spine stenosis with myelopathy POD#4 C2-C3 laminectomy and fusion, epidural hematoma evacuation on 02/04/[address] 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 We will continue to follow this patient with you. [facility] via the role in Tiger[employer] - please don't hesitate to reach out with questions. Patient seen in collaboration with Dr Valencia. Please see addendum. I spent a total of 40 minutes coordinating, documenting and providing care for this patient excluding time spent in the performance of separately billed services or time spent by another provider/QHP. Admission and Anticipated Discharge Date Admission Date: February 04, 2025 Subjective Patient seen sitting in chair Reports no neck pain Uncomfortable in cervical collar Denies numbness/tingling in the arms No other acute complaints Review of Systems Review of Systems: All systems reviewed & are unremarkable except as noted in Subjective Physical Exam Physical Exam: General/Psych: WD/WN, laying in bed, NAD, conversing easily Head: normocephalic, atraumatic Eyes: normal inspection, PERRL, conjunctivae pink ENT: external ear and nose normal, oropharynx normal Neck: normal visual inspection, trachea midline Respiratory: normal respiratory effort, lungs clear to auscultation, no wheeze/rales/rhonchi, no accessory muscle use Cardiovascular: regular rate and rhythm, no murmur/rub/gallop, no JVD Extremities: no cyanosis or clubbing, normal peripheral pulses, no BLE edema, TEDs in place Abdomen/GI: normal bowel sounds, soft, nontender Neurologic/MSK: A+Ox3, motor strength 5/5, moves all extremities, sensation intact BUE Skin: no rashes, normal color, warm and dry; dressing c/d/i Results & Data Results & Data Vital Signs (Past 12 Hours) Vital Signs Temp Pulse Resp BP Pulse Ox O2 Del Method 02/08/25 07:16 36.7 C 80 18 166/91 H 95 Room Air Laboratory Results Short CBC 02/08/25 Range/Units 09:42 WBC 9.19 (4.8-10.8) K/ul Hgb 12.9 (12.0-16.0) g/dl Hct 40.0 (37.0-47.0) % Plt Count 290 (130-400) K/uL BMP 02/08/25 09:42 Sodium 138 Potassium 3.5 Chloride 98 Carbon Dioxide 31 BUN 16 Creatinine 1.06 Glucose 202 H Calcium 9.2 I have independently reviewed and interpreted patient's labs including CBC, BMP Medications Administered Current Inpatient Medications Acetaminophen (Acetaminophen 500 Mg Tab) 1,000 mg PO Q8H PRN PRN Reason: MILD Pain (1,2,3) & Pre PT Stop: 03/06/25 19:14 Last Admin: 02/08/25 08:06 Dose: 1,000 mg Al Hydrox/Mg Hydrox/Simethicone (Aluminum/Magnesium Susp 30 Ml Udc) 30 ml PO Q6H PRN PRN Reason: Dyspepsia Stop: 03/06/25 19:14 Amlodipine Besylate (Amlodipine Besylate 5 Mg Tab) 10 mg PO QAM STEPHANIE Stop: 03/07/25 08:59 Last Admin: 02/08/25 08:09 Dose: 10 mg Ascorbic Acid (Ascorbic Acid 500 Mg Tab) 1,000 mg PO DAILY STEPHANIE Stop: 03/07/25 08:59 Last Admin: 02/08/25 08:08 Dose: 1,000 mg Atorvastatin Calcium (Atorvastatin 40 Mg Tab) 40 mg PO QAM STEPHANIE Stop: 03/07/25 08:59 Last Admin: 02/08/25 08:08 Dose: 40 mg Bisacodyl (Bisacodyl 10 Mg Supp) 10 mg OH DAILY PRN PRN Reason: Constipation Stop: 03/06/25 19:14 Cyanocobalamin (Cyanocobalamin (B-12) 2,500 Mcg Tablet) 2,500 mcg SL DAILY STEPHANIE Stop: 03/07/25 08:59 Last Admin: 02/08/25 08:09 Dose: 2,500 mcg Dextrose (Dextrose 50% 50 Ml Syringe) 25 - 50 ml IV UD PRN; Protocol PRN Reason: Hypoglycemia Protocol Stop: 03/06/25 21:52 Diphenhydramine HCl (Diphenhydramine Capsule 25 Mg Cap) 25 mg PO Q6H PRN PRN Reason: Allergic Rhinitis/Insomnia Stop: 03/06/25 19:14 Duloxetine HCl (Duloxetine Hcl 60 Mg Cap) 60 mg PO HS [facility] Stop: 03/06/25 20:59 Last Admin: 02/07/25 21:23 Dose: 60 mg Epinephrine (Racepinephrine 2.25% Nebu Soln 0.5 Ml Vial) 0.5 ml INH NOW PRN PRN Reason: If stridor present Famotidine (Famotidine 20 Mg Tab) 20 mg PO Q12H PRN PRN Reason: Dyspepsia Stop: 03/06/25 19:14 Glucagon (Glucagon For Inj 1 Mg Vial) 1 mg SQ UD PRN; Protocol PRN Reason: Hypoglycemia Protocol Stop: 03/06/25 21:52 Glucose (Glucose 40% Gel 15 Gm Tube) 15 - 30 gm PO UD PRN; Protocol PRN Reason: Hypoglycemia Protocol Stop: 03/06/25 21:52 Glucose (Glucose 10 Tab/Tube) 4 - 8 tab PO UD PRN; Protocol PRN Reason: Hypoglycemia Protocol Stop: 03/06/25 21:52 Hydralazine HCl (Hydralazine Hcl 25 Mg Tab) 25 mg PO BID STEPHANIE Stop: 03/06/25 20:59 Last Admin: 02/08/25 08:08 Dose: 25 mg Hydromorphone HCl (Hydromorphone Inj 0.5 Mg/0.5 Ml Syr) 0.5 mg IV Q3H PRN PRN Reason: MODERATE Pain(4,5,6)/Pre PT Stop: 02/18/25 19:14 Last Admin: 02/06/25 05:53 Dose: 0.5 mg Hydromorphone HCl (Hydromorphone Inj 1 Mg/Ml Syringe) 1 mg IV Q3H PRN PRN Reason: SEVERE Pain (7,8,9,10) Stop: 02/18/25 19:14 Last Admin: 02/07/25 21:25 Dose: 1 mg Hydroxyzine HCl (Hydroxyzine Hcl 25 Mg Tab) 25 mg PO Q8H PRN PRN Reason: Anxiety Stop: 03/06/25 19:14 Dexamethasone 8 mg/ Syringe 2 mls @ 1 mls/min IV NOW PRN PRN Reason: If stridor present Promethazine HCl (Phenergan) 12.5 mg in 50.5 mls @ 202 mls/hr IV Q6H PRN PRN Reason: Nausea And Vomiting Stop: 03/06/25 19:14 Cefazolin Sodium (Ancef 2000mg) 2,000 mg in 15 mls @ 3.75 mls/min IV Q8H STEPHANIE Stop: 02/08/25 13:59 Last Admin: 02/08/25 06:21 Dose: 3.75 mls/min Influenza Virus Vaccine Quadrival (Do Not Administer Flu Vaccine) 1 each N/A PRN PRN PRN Reason: Notification Stop: 03/06/25 19:14 Insulin Aspart (Insulin Aspart Per Unit Charge) 0 units SC ACHS [facility] Stop: 03/06/25 21:54 Last Admin: 02/08/25 08:56 Dose: 4 units Lorazepam (Lorazepam 0.5 Mg Tab) 0.5 mg PO Q8H PRN PRN Reason: Sedation/Anxiety Stop: 03/06/25 19:14 Lorazepam (Lorazepam 2 Mg/1 Ml Vial) 0.5 mg IV Q8H PRN PRN Reason: Sedation/Anxiety Stop: 03/06/25 19:14 Losartan Potassium (Losartan Potassium 50 Mg Tab) 100 mg PO QAM [facility] Stop: 03/07/25 08:59 Last Admin: 02/08/25 08:08 Dose: 100 mg Magnesium Hydroxide (Magnesium Hydroxide Susp 30 Ml Udc) 30 ml PO Q24H PRN PRN Reason: Constipation Stop: 03/06/25 19:14 Magnesium Oxide (Magnesium Oxide 400 Mg Tab) 400 mg PO HS [facility] Stop: 03/06/25 20:59 Last Admin: 02/07/25 21:23 Dose: 400 mg Miscellaneous (Armodafinil 250 Mg Tablet ~ Order Awaiting Action) 1 each N/A QS [facility] Stop: 03/07/25 00:00 Last Admin: 02/08/25 08:08 Dose: Not Given Miscellaneous (Carbohydrates For Hypoglycemia ) 15 - 30 gm PO UD PRN PRN Reason: Hypoglycemia Protocol Stop: 03/06/25 21:52 Multivitamins/Minerals (Cerovite Adv Formula Tab) 1 tab PO QAM [facility] Stop: 03/07/25 08:59 Last Admin: 02/08/25 08:08 Dose: 1 tab Naloxone HCl (Naloxone Hcl 0.4 Mg/1 Ml Vial/Carp) 0.1 mg IV Q5M PRN PRN Reason: Oversedation/Resp depression Stop: 03/06/25 19:14 Ondansetron HCl (Ondansetron Inj 2 Mg/Ml 2 Ml Vial) 4 mg IV Q6H PRN PRN Reason: Nausea &/or Vomiting Stop: 03/06/25 19:14 Ondansetron HCl (Ondansetron 4 Mg Od Tab) 4 mg PO Q6H PRN PRN Reason: Nausea Stop: 03/06/25 19:14 Oxybutynin Chloride (Oxybutynin Chloride Xl 5 Mg Tabcr) 5 mg PO DAILY [facility] Stop: 03/07/25 08:59 Last Admin: 02/08/25 08:09 Dose: 5 mg Oxycodone HCl (Oxycodone Hcl Ir 5 Mg Tab (Immediate Release)) 5 - 10 mg PO Q4H PRN PRN Reason: MOD/SEV Pain & Pre PT Stop: 02/18/25 19:14 Last Admin: 02/08/25 06:19 Dose: 5 mg Pneumococcal Polyvalent Vaccine (Do Not Administer Pneumococcal Vaccine) 1 each N/A PRN PRN PRN Reason: Notification Stop: 03/06/25 19:14 Polyethylene Glycol (Polyethylene (Miralax) 17 Gm Pack) 17 gm PO Q6 [facility] Stop: 03/07/25 05:59 Last Admin: 02/08/25 06:19 Dose: 17 gm Senna/Docusate Sodium (Docusate Sodium/Senna 50/8.6mg Tab) 2 tab PO HS [facility] Stop: 03/06/25 20:59 Last Admin: 02/07/25 21:23 Dose: 2 tab Sodium Biphosphate/Sodium Phosphate (Sod Phosphate/Sod Biphosphate Enema 132 Ml Btl) 132 ml OH ONE PRN PRN Reason: Constipation Stop: 03/06/25 19:14 Tizanidine HCl (Tizanidine Hcl 4 Mg Tablet) 4 mg PO Q8H PRN PRN Reason: Muscle Spasm Stop: 03/06/25 19:14 Last Admin: 02/06/25 16:55 Dose: 4 mg Vibegron ([facility] 75 Mg Tab) [facility] 03/07/25 08:59 Last Admin: 02/08/25 08:08 Dose: 75 mg Vitamin D (Cholecalciferol 125 Mcg (5,000 Units) Tab) 125 mcg PO QAM [facility] Stop: 03/07/25 08:59 Last Admin: 02/08/25 08:08 Dose: 125 mcg (6) Leukocytosis Leukocytosis type: unspecified Qualified Code(s): D72.829 - Elevated white blood cell count, unspecified (7) 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
[2025-02-08 15:26] VITALS: RESP 16
[2025-02-09 07:29] VITALS: BP 137/74; PULSE 82; TEMP 98.8; O2SAT 97
--- NOTE | 2025-02-09 08:46 | Orthopedic Progress Note ---
Date of Service February 09, 2025 Assessment & Plan (1) S/P cervical spinal fusion: * Continue Current Treatment * Disposition: rehab/SNF * Remaining drain removed yesterday. Local wound care/dressing change PRN * Daily treatment: Physical Therapy/ Occupational Therapy per protocol * Weight bearing status: WBAT * Soft collar for comfort * Pain control * No NSAIDs, DVT ppx * Office/hospital f/u 2 weeks for progress check and staple/suture removal * Plan for discharge today pending PT/OT rehab placement Subjective Active Problems: S/p cervical decompression and fusion POD 5 75 y/o female s/p cervical decompression and fusion. Doing well overall, pain managed and improving day to day, and improved function. Denies fever/chills, chest pain/SOB, nausea/vomiting. Otherwise no complaints. Drains out. Review of Systems All systems reviewed & are unremarkable except as noted in HPI & below. Physical Exam .General: Alert and oriented, no acute distress * Constitutional: well-developed, well-nourished. * Respiratory: Normal respiratory effort, no distress * Gastrointestinal: No tenderness to palpation, no rigidity or guarding. * Skin: No rash or lesion. * Neurologic: Grossly normal * Musculoskeletal: Surgical dressing CDI. Cervical spine region without obvious deformity or overlying skin changes. Minimal tenderness of surgical region, o therwise no tenderness b/l UE. 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 Sensation intact radial/median/ulnar nerve distributions. Brisk capillary refill. Results & Data Results & Data Laboratory Results . Diagnostic Findings . PG Care Time/CCT Total # of Minutes Spent Total Time Spent with Patient: Total time spent is greater than 50% in coordination of care (as documented) at patient's floor/unit and/or counseling patient: Coding Level of Care Code 79733 Post Operative Follow-Up Diagnoses S/P cervical spinal fusion Z98.1
[2025-02-09] MEDS: FAMOTIDINE 20 MG TAB PO PRN (10:26)
--- NOTE | 2025-02-09 11:20 | Hospitalist Progress Note ---
Date of Service February 09, 2025 Assessment & Plan (1) Cervical myelopathy: (2) Cervical stenosis of spinal canal: (3) S/P spinal surgery: (4) Postoperative hypoxia: (5) Acute blood loss anemia: (6) Leukocytosis: (7) Diabetes type 2: Plan 75 year old female with PMH significant for DM type II with proteinuria, left ovarian cyst, mixed HLD, MAGALY with CPAP noncompliance, HTN, thoracic aortic aneurysm, morbid obesity, urge incontinence, chronic bilateral low back pain with bilateral sciatica, narcolepsy, history of TIA, depression, and cervical spine stenosis with myelopathy who presented on 02/04/2025 for C2-C3 laminectomy and fusion with Dr. Steinberg. Post op complication of spinal epidural hematoma formation requiring emergent evacuation in the OR later in the evening on 02/04/2025 due to a malfunctioning surgical drain. We have been consulted for post operative medical management. Cervical spine stenosis with myelopathy POD#5 C2-C3 laminectomy and fusion, epidural hematoma evacuation on 02/04/[address] Steinberg Pain is well controlled Continue use of cervical collar while OOB PT/OT recommended rehab DC to [facility] today for rehab Postoperative hypoxia, resolved Hypoxic to 85% on POD#1 (02/05/2025) requiring O2 via NC On RA with SpO2 >90% at time of dc Diabetes type 2 A1C 5.9% in December 2024 Diet controlled Hypertension Continue losartan, amlodipine, hydralazine Hyperlipidemia Continue atorvastatin History TIA Continue baby aspirin per primary team Narcolepsy Continue armodafinil Thank you for this consultation. We will continue to follow this patient with you. [facility]/01 via the role in [employer] - please don't hesitate to reach out with questions. Patient seen in collaboration with Dr Cabello. Please see addendum. I spent a total of 35 minutes coordinating, documenting and providing care for this patient excluding time spent in the performance of separately billed services or time spent by another provider/QHP. Admission and Anticipated Discharge Date Admission Date: February 04, 2025 Supervising Physician Co-Signing Physician Notes Pt seen and examined by me, care coordinated w/ JUNO Bonilla, pls refer to her note above for further detail. Pt seen sitting up in bed in NAD. Appears a bit drowsy but able to answer all questions appropriately. Denies any fever, chills, chest pain, shortness of breath. She is breathing comfortably on RA. heart sounds regular. Abdomen soft, nontender. Moves extremities. Possible DC today to center care. MD Destiney Subjective Patient seen resting in bed Reports mild neck pain Reports numbness and tingling in right arm and bilateral hands No other acute complaints Review of Systems Review of Systems: All systems reviewed & are unremarkable except as noted in Subjective Physical Exam Physical Exam: General/Psych: WD/WN, laying in bed, NAD, drowsy Head: normocephalic, atraumatic Eyes: normal inspection, PERRL, conjunctivae pink ENT: external ear and nose normal, oropharynx normal Neck: normal visual inspection, trachea midline Respiratory: normal respiratory effort, lungs clear to auscultation, no wheeze/rales/rhonchi, no accessory muscle use Cardiovascular: regular rate and rhythm, no murmur/rub/gallop, no JVD Extremities: no cyanosis or clubbing, normal peripheral pulses, no BLE edema, TEDs in place Abdomen/GI: normal bowel sounds, soft, nontender Neurologic/MSK: A+Ox3, motor strength 5/5, moves all extremities, sensation intact BUE Skin: no rashes, normal color, warm and dry; dressing c/d/i Results & Data Results & Data Vital Signs (Past 12 Hours) Vital Signs Temp Pulse Resp BP Pulse Ox O2 Del Method 02/09/25 07:28 37.1 C 82 16 137/74 97 Room Air 02/08/25 23:21 37.3 C 87 16 183/98 H 94 Room Air Medications Administered Current Inpatient Medications Acetaminophen (Acetaminophen 500 Mg Tab) 1,000 mg PO Q8H PRN PRN Reason: MILD Pain (1,2,3) & Pre PT Stop: 03/06/25 19:14 Last Admin: 02/08/25 20:21 Dose: 1,000 mg Al Hydrox/Mg Hydrox/Simethicone (Aluminum/Magnesium Susp 30 Ml Udc) 30 ml PO Q6H PRN PRN Reason: Dyspepsia Stop: 03/06/25 19:14 Amlodipine Besylate (Amlodipine Besylate 5 Mg Tab) 10 mg PO QAM STEPHANIE Stop: 03/07/25 08:59 Last Admin: 02/09/25 09:20 Dose: 10 mg Ascorbic Acid (Ascorbic Acid 500 Mg Tab) 1,000 mg PO DAILY STEPHANIE Stop: 03/07/25 08:59 Last Admin: 02/09/25 09:19 Dose: 1,000 mg Atorvastatin Calcium (Atorvastatin 40 Mg Tab) 40 mg PO QAM STEPHANIE Stop: 03/07/25 08:59 Last Admin: 02/09/25 09:19 Dose: 40 mg Bisacodyl (Bisacodyl 10 Mg Supp) 10 mg OH DAILY PRN PRN Reason: Constipation Stop: 03/06/25 19:14 Cyanocobalamin (Cyanocobalamin (B-12) 2,500 Mcg Tablet) 2,500 mcg SL DAILY STEPHANIE Stop: 03/07/25 08:59 Last Admin: 02/09/25 09:20 Dose: 2,500 mcg Dextrose (Dextrose 50% 50 Ml Syringe) 25 - 50 ml IV UD PRN; Protocol PRN Reason: Hypoglycemia Protocol Stop: 03/06/25 21:52 Diphenhydramine HCl (Diphenhydramine Capsule 25 Mg Cap) 25 mg PO Q6H PRN PRN Reason: Allergic Rhinitis/Insomnia Stop: 03/06/25 19:14 Duloxetine HCl (Duloxetine Hcl 60 Mg Cap) 60 mg PO HS [facility] Stop: 03/06/25 20:59 Last Admin: 02/08/25 20:21 Dose: 60 mg Epinephrine (Racepinephrine 2.25% Nebu Soln 0.5 Ml Vial) 0.5 ml INH NOW PRN PRN Reason: If stridor present Famotidine (Famotidine 20 Mg Tab) 20 mg PO Q12H PRN PRN Reason: Dyspepsia Stop: 03/06/25 19:14 Last Admin: 02/09/25 10:26 Dose: 20 mg Glucagon (Glucagon For Inj 1 Mg Vial) 1 mg SQ UD PRN; Protocol PRN Reason: Hypoglycemia Protocol Stop: 03/06/25 21:52 Glucose (Glucose 40% Gel 15 Gm Tube) 15 - 30 gm PO UD PRN; Protocol PRN Reason: Hypoglycemia Protocol Stop: 03/06/25 21:52 Glucose (Glucose 10 Tab/Tube) 4 - 8 tab PO UD PRN; Protocol PRN Reason: Hypoglycemia Protocol Stop: 03/06/25 21:52 Hydralazine HCl (Hydralazine Hcl 25 Mg Tab) 25 mg PO BID [facility] Stop: 03/06/25 20:59 Last Admin: 02/09/25 09:19 Dose: 25 mg Hydromorphone HCl (Hydromorphone Inj 0.5 Mg/0.5 Ml Syr) 0.5 mg IV Q3H PRN PRN Reason: MODERATE Pain(4,5,6)/Pre PT Stop: 02/18/25 19:14 Last Admin: 02/06/25 05:53 Dose: 0.5 mg Hydromorphone HCl (Hydromorphone Inj 1 Mg/Ml Syringe) 1 mg IV Q3H PRN PRN Reason: SEVERE Pain (7,8,9,10) Stop: 02/18/25 19:14 Last Admin: 02/07/25 21:25 Dose: 1 mg Hydroxyzine HCl (Hydroxyzine Hcl 25 Mg Tab) 25 mg PO Q8H PRN PRN Reason: Anxiety Stop: 03/06/25 19:14 Dexamethasone 8 mg/ Syringe 2 mls @ 1 mls/min IV NOW PRN PRN Reason: If stridor present Promethazine HCl (Phenergan) 12.5 mg in 50.5 mls @ 202 mls/hr IV Q6H PRN PRN Reason: Nausea And Vomiting Stop: 03/06/25 19:14 Influenza Virus Vaccine Quadrival (Do Not Administer Flu Vaccine) 1 each N/A PRN PRN PRN Reason: Notification Stop: 03/06/25 19:14 Insulin Aspart (Insulin Aspart Per Unit Charge) 0 units SC ACHS [facility] Stop: 03/06/25 21:54 Last Admin: 02/09/25 09:17 Dose: 4 units Lorazepam (Lorazepam 0.5 Mg Tab) 0.5 mg PO Q8H PRN PRN Reason: Sedation/Anxiety Stop: 03/06/25 19:14 Lorazepam (Lorazepam 2 Mg/1 Ml Vial) 0.5 mg IV Q8H PRN PRN Reason: Sedation/Anxiety Stop: 03/06/25 19:14 Losartan Potassium (Losartan Potassium 50 Mg Tab) 100 mg PO QAM [facility] Stop: 03/07/25 08:59 Last Admin: 02/09/25 09:19 Dose: 100 mg Magnesium Hydroxide (Magnesium Hydroxide Susp 30 Ml Udc) 30 ml PO Q24H PRN PRN Reason: Constipation Stop: 03/06/25 19:14 Magnesium Oxide (Magnesium Oxide 400 Mg Tab) 400 mg PO HS [facility] Stop: 03/06/25 20:59 Last Admin: 02/08/25 20:21 Dose: 400 mg Miscellaneous (Armodafinil 250 Mg Tablet ~ Order Awaiting Action) 1 each N/A QS [facility] Stop: 03/07/25 00:00 Last Admin: 02/09/25 08:04 Dose: Not Given Miscellaneous (Carbohydrates For Hypoglycemia ) 15 - 30 gm PO UD PRN PRN Reason: Hypoglycemia Protocol Stop: 03/06/25 21:52 Multivitamins/Minerals (Cerovite Adv Formula Tab) 1 tab PO QAM [facility]IE Stop: 03/07/25 08:59 Last Admin: 02/09/25 09:19 Dose: 1 tab Naloxone HCl (Naloxone Hcl 0.4 Mg/1 Ml Vial/Carp) 0.1 mg IV Q5M PRN PRN Reason: Oversedation/Resp depression Stop: 03/06/25 19:14 Ondansetron HCl (Ondansetron Inj 2 Mg/Ml 2 Ml Vial) 4 mg IV Q6H PRN PRN Reason: Nausea &/or Vomiting Stop: 03/06/25 19:14 Ondansetron HCl (Ondansetron 4 Mg Od Tab) 4 mg PO Q6H PRN PRN Reason: Nausea Stop: 03/06/25 19:14 Oxybutynin Chloride (Oxybutynin Chloride Xl 5 Mg Tabcr) 5 mg PO DAILY [facility] Stop: 03/07/25 08:59 Last Admin: 02/09/25 09:20 Dose: 5 mg Oxycodone HCl (Oxycodone Hcl Ir 5 Mg Tab (Immediate Release)) 5 - 10 mg PO Q4H PRN PRN Reason: MOD/SEV Pain & Pre PT Stop: 02/18/25 19:14 Last Admin: 02/09/25 05:44 Dose: 10 mg Pneumococcal Polyvalent Vaccine (Do Not Administer Pneumococcal Vaccine) 1 each N/A PRN PRN PRN Reason: Notification Stop: 03/06/25 19:14 Senna/Docusate Sodium (Docusate Sodium/Senna 50/8.6mg Tab) 2 tab PO HS [facility] Stop: 03/06/25 20:59 Last Admin: 02/08/25 20:21 Dose: 2 tab Sodium Biphosphate/Sodium Phosphate (Sod Phosphate/Sod Biphosphate Enema 132 Ml Btl) 132 ml OH ONE PRN PRN Reason: Constipation Stop: 03/06/25 19:14 Tizanidine HCl (Tizanidine Hcl 4 Mg Tablet) 4 mg PO Q8H PRN PRN Reason: Muscle Spasm Stop: 03/06/25 19:14 Last Admin: 02/06/25 16:55 Dose: 4 mg Vibegron (Vibegron 75 Mg Tab) 75 mg PO [facility] Stop: 03/07/25 08:59 Last Admin: 02/09/25 09:19 Dose: 75 mg Vitamin D (Cholecalciferol 125 Mcg (5,000 Units) Tab) 125 mcg PO [facility] Stop: 03/07/25 08:59 Last Admin: 02/09/25 09:20 Dose: 125 mcg (6) Leukocytosis Leukocytosis type: unspecified Qualified Code(s): D72.829 - Elevated white blood cell count, unspecified (7) Diabetes type 2 Diabetes mellitus complication status: with other specified complication 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
--- NOTE | 2025-02-10 08:52 | Discharge Summary ---
Date of Service February 10, 2025 Principal Diagnosis Same as "Discharge Diagnosis" noted below under Discharge Instructions. Discharge Exam .General: Alert and oriented, no acute distress * Constitutional: well-developed, well-nourished. * Respiratory: Normal respiratory effort, no distress * Gastrointestinal: No tenderness to palpation, no rigidity or guarding. * Skin: No rash or lesion. * Neurologic: Grossly normal * Musculoskeletal: Surgical dressing CDI. Cervical spine region without obvious deformity or overlying skin changes. Minimal tenderness of surgical region, otherwise no tenderness b/l UE. 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 Sensation intact radial/median/ulnar nerve distributions. Brisk capillary refill. Discharge Data Consultations 02/04/25 19:15 Consult Hospitalist Routine Procedures Performed Operation Date: 02/04/25 13:05 Actual Procedures Posterior Cervical Fusion C2-C3and decompression p Evacuation Surgical Hematoma(Right) - Sharath Steinberg MD Ordered Studies 02/04/25 07:30 CT cervical spine wo con Routine FL spine 1V any level Routine 02/04/25 13:28 FL cervical 2-3V Routine Hospital Course (1) S/P spinal surgery: Plan Patient was admitted postoperatively for pain control and mobilization with physical therapy. While in the PACU it was discovered that the patient's drain was not functioning properly, she had some reports of numbness in the arms and legs. She was taken back emergently and drained replaced with good function, u sarah awakening she no longer had any neurologic symptoms. They worked with physical therapy and made progress pain was controlled with IV pain medication and transitioned to oral medications. Normal return of bowel and bladder function. They worked with physical therapy, vital signs were acceptable, no need for transfusion, deemed safe for discharge. Recommendations from physical therapy and her medical team here at the hospital were for her to proceed to inpatient rehab for continued strengthening however her insurance company denied this request. She was then authorized for transfer to a senior living facility on 02/09/2025. She will follow-up in the office in 2 weeks. PG Care Time/CCT Total # of Minutes Spent Total Time Spent with Patient: Total time spent is greater than 50% in coordination of care (as documented) at patient's floor/unit and/or counseling patient: Discharge Plan Discharge Items Patient Disposition: Transfer Snf Fac Reason For Visit: Cervical Myelopathy, Cervical Stenosis of Spinal C Discharge Diagnosis: s/p cervical spine fusion Activity: Per Instructions section Non-emergency contact: Surgeon Call non-emergency contact if: your symptoms worsen, your temperature is above 101.5, your wound has increased redness and your wound has increased drainage Follow-up/Referrals: Delvin Howard MD [Primary Care Provider] - Diet: Regular Addtl Attending Provider Instructions: Instructions for FUSION Spine Surgery DO NOT TAKE ANY ANTI-INFLAMMATORY MEDICATIONS (MOTRIN, ALEVE, MOBIC, ETC.) IF YOU HAVE UNDERGONE A LUMBAR, THORACIC, OR CERVICAL FUSION DO NOT TAKE ANY HERBAL SUPPLEMENTS MEDICATIONS: You will be given prescriptions for the following: Oxycodone, Percocet or Hydrocodone - For breakthrough pain. Cyclobenzaprine (Flexeril), Valium (Diazepam), Tizanidine (Zanaflex), or Methocarbamol (Robaxin) For muscle spasms and back pain. Take these m edications as needed. They will help the most during your recovery time. Senna-s and Miralax Senna-S twice daily, 17g packet of Miralax with water once daily while taking narcotics. These medications prevent constipation caused by the pain medications. Ondansetron (Zofran) For nausea. Cephalexin (Keflex) or Sulfamethoxazole/trimethoprim (Bactrim). Antibiotic. You are given IV antibiotics while in the hospital; you may or may not be given a prescription for home; this will be decided after surgery. Your pre-surgery prescription medications With the exception of anti- inflammatory medications, blood thinners (Coumadin, Plavix, Eliquis, Pradaxa, etc.), or narcotic pain medications, you may resume your home medications. For the above medications, you will be given specific instructions; you may resume blood thinners 3-4 days after surgery. ACTIVITIES: Walking Walking is mandatory. You need to walk at least once every hour while awake. Walking will help prevent blood clots in your legs and help prevent spasms in your back. Bending/twisting Limit bending at the waist, limit twisting and turning. You will be taught to "log roll" to get out of bed. Avoid athletic activities until further notice. Lifting Do NOT lift more than 5 lbs until further notice. Driving You may drive when you are no longer taking narcotic pain medications, can safely operate the brake/gas/clutch pedals, and can move your head/neck for visibility. Tobacco All tobacco products are strictly prohibited after surgery. Any use will dramatically increase your risk of complications. This includes vapor cigarettes, marijuana, nicotine patches and gums. Bracing/Cervical Collar There is no brace required for thoracic or lumbar surgery. If you have had a single level cervical fusion, you will be given a soft collar for comfort. Multiple level cervical fusions will receive a hard collar to be worn at all times, except for showering and hygiene, until follow up in clinic. Surgical Dressing Initial operative dressing is to stay on for 2 days; you may change it if it becomes saturated. From then on, change the dressing daily with dry gauze and paper tape. Continue to change dressing until there is no discharge. Once there is no discharge on the dressing, you may leave the incision open to air but make sure to keep it out of the sun. For supplies, stop by any local pharmacy. Any type of gauze dressing is acceptable. Do not put any ointments on the wound. You may shower 48 hours after your surgery. Cover the incision with Saran Wrap and tape the edges to prevent water from contacting the incision. If water contacts the incision, pat dry. No baths or submerging the incision until seen in the clinic at follow up appointment. Next Appointment: If you do not already have one made, you will need to schedule an appointment to see Dr. Steinberg about 2 weeks after surgery. To schedule, please call [phone]. QUESTIONS Please contact the office with questions or concerns: [phone] If outside normal business hours, you will be connected with the on-call physician. Pending Studies at Discharge: No Stand-Alone Forms: My [employer] Skilled Items Lines: None Urinary Catheter: No Medications and DC Order Prescriptions: New oxycodone 5 mg tablet 5 mg PO Q6H PRN (Reason: pain) Qty: 30 0RF Senokot Extra Strength 17.2 mg tablet 17.2 mg PO HS PRN (Reason: constipation) Qty: 14 0RF Continued diclofenac sodium 3 % gel 1 applic topical BID PRN (Reason: pain) Qty: 100 2RF Patient Comments: *does not have new rx yet. amlodipine 10 mg tablet 10 mg PO QAM duloxetine 60 mg capsule,delayed release(DR/EC) 60 mg PO HS losartan 50 mg tablet 100 mg PO QAM ascorbic acid (vitamin C) [Vitamin C] 1,000 mg Tablet 1,000 mg PO DAILY Patient Comments: afternoon cyanocobalamin (vitamin B-12) [Vitamin B-12] 2,500 mcg Tablet, Sublingual 2,500 mcg SUBLINGUAL DAILY Patient Comments: afternoon Rx Instructions: AFTERNOON aspirin 81 mg Tablet,Delayed Release (Dr/Ec) 81 mg PO QPM Rx Instructions: AFTERNOON coenzyme Q10 [CoQ-10] 100 mg Capsule 100 mg PO DAILY Patient Comments: lunch time trospium 20 mg tablet 20 mg PO BID armodafinil 250 mg tablet 250 mg PO QAM cholecalciferol (vitamin D3) [Vitamin D3] 125 mcg (5,000 unit) Tablet 125 mcg PO QAM mirabegron 50 mg tablet extended release 24 hr 50 mg PO QAM Women's 50 Plus Multivitamin 400 mcg-500 mg calcium-20 mcg Tablet 1 tab PO QAM magnesium oxide 400 mg magnesium Tablet 400 mg PO HS atorvastatin 40 mg Tablet 40 mg PO QAM Patient Comments: ran out hydralazine 25 mg Tablet 25 mg PO BID oxycodone-acetaminophen 5-325 mg Tablet 1 tab PO Q8H PRN (Reason: Pain) Discharge Orders: Discharge Order (Routine); Ordered 02/09/25 Ordered By: Paul Carrasco Admission Data Admit Date/Time: 02/04/25 07:20 Attending Provider: Sharath Steinberg Admit Provider: Sharath Steinberg Primary Care Provider: Delvin Howard Other Providers: Erika Escalera; Rachel Moran I.; Zay Vera; Cheri Herring; Sunita Butt; Taina Glover; Bobbi Abarca; David Kruse; Kali Clements; Abhishek Sinha; Elmer Baum; Xiao Wade; Dewayne Vega; Diya Middleton; Rosy Boone; Muriel Shine; Catina Patton; Teressa Powers I.; Declan Cabello; Deyanira Pierre; Hubert Ross; Chris Sharma; Charles Bear; Alonso Parker; Chantell He; Nuris Oliveros; Darin Valencia; Dakota Cartwright; Simone Ortiz; Declan Rojas; Mary Worley; Madi Cash; Briana Cartagena; Sydney Ch; Sydney Meeks; Henry Hernandez; Delbert Villagomez; IRB Approved Study,uRbén; [facility]; [facility] Other Interventions: Discharge Summary Assessment (RN) Last Done: 02/09/25 14:13
== END 2025-02-09 15:58 | DRG 471 ==
LOC: ASU 06:19 → 2S 07:20 → 3W 02-06 00:22